=== PATIENT | female | born 1945 | race Caucasian/White ===

== ENCOUNTER 2018-11-30 10:51 | Inpatient (IN) ==
[2018-11-30] MEDS: *HR* OxyCODONE/APAP 5/325 TABLET PO PRN ×2 (13:00→20:28)
[2018-11-30] MEDS ORDERED: MOM Conc 10 ML UD.LIQ PO ONE (14:56)
[2018-11-30] MEDS ORDERED: *HR* Dextrose 50 % in Water (Syg) 50 ML SYRINGE IVP PRN (15:54)
[2018-11-30] MEDS ORDERED: D5% in Water 1,000 ML IVC PRN (15:54)
[2018-11-30] MEDS ORDERED: Dextrose Gel 15 GM/37.5 ML TUBE PO PRN ×2 (15:54)
[2018-11-30] MEDS ORDERED: *HR* Dextrose 50 % in Water (Vial) 50 ML VIAL IVP PRN (16:15)
[2018-11-30] MEDS: Insulin LISPRO 300 UNITS/3 ML VIAL SQ SCH (17:03)
--- NOTE | 2018-11-30 17:37 | Internal Med History&Physical ---
Date of Encounter: 11/30/18 Time of Encounter: 17:10 Assessment and Plan (1) Status post coronary artery bypass graft Current visit: No Status: Acute Continue aspirin and Lopressor. PT and OT evaluations will be done. (2) Anemia Current visit: Yes Status: Acute Anemia testing will be done in a.m. Qualifiers: Anemia type: unspecified type Qualified Code(s): D64.9 - Anemia, unspecified (3) Diabetes mellitus Current visit: No Status: Chronic Hemoglobin A1c was 7.2% on 11/20/2018. Continue Victoza. She will be given Levemir and Accu-Cheks with SSI. Qualifiers: Diabetes mellitus type: type 2 Diabetes mellitus exterminator insulin use: with long-term use Diabetes mellitus complication status: with neurologic complications Diabetes mellitus complication detail: with polyneuropathy Qualified Code(s): E11.42 - Type 2 diabetes mellitus with diabetic polyneuropathy; Z79.4 - intermediate designer (current) use of insulin (4) Hypertension Current visit: No Status: Chronic Continue lisinopril and Lopressor. Qualifiers: Hypertension type: essential hypertension Qualified Code(s): I10 - Essential (primary) hypertension (5) Hyperlipemia Current visit: No Status: Acute Continue atorvastatin. Qualifiers: Hyperlipidemia type: other hyperlipidemia Qualified Code(s): E78.49 - Other hyperlipidemia; E78.4 - Other hyperlipidemia (6) Asthma Current visit: No Status: Chronic Continue Asmanex and prn albuterol. Qualifiers: Asthma severity: mild Asthma persistence: intermittent Asthma complication type: uncomplicated Qualified Code(s): J45.20 - Mild intermittent asthma, uncomplicated (7) Chronic kidney disease, stage III (moderate) Current visit: No Status: Chronic Monitor renal indices. Internal Medicine - H&P: HPI Chief complaint: ASHD status post CABG Admitted From: Hospital to Hospital Transfer Plans for Post Hospital Care: Home History of present illness: Ms. Tapia is a 73 year old female was admitted to [facility] swing bed after a November 19- November 29 [facility] hospitalization for CABG surgery. Heart catheter 11/19/2018 showed 60% stenosis in distal LMCA, 85% stenosis in proximal LAD, 90% stenosis in proxi mal circumflex, 20% stenosis in distal circumflex, 90% stenosis in the first marginal, 25% stenosis in mid RCA and 10% stenosis in distal RCA. She had PETERSON to LAD and SVG to OMB 2 of circumflex 11/22/2018.. Her postop course was unremarkable and she was admitted for redilatation therapy prior to returning to independent living at home. Cardiovascular history is significant otherwise for hypertension with NV approximately 2008. Echocardiogram 11/20/2018 showed LVEF of 55-60% with mild mitral regurgitation. Interventricular septum and posterior wall thickness measurements were 1.00 and 1.10 cm respectively. The E/A ratio was 0.7. Lack of TR jet precluded estimation of RVSP. She denies DVT or pulmonary embolus. Past Med Surg Social Fam HX - Past Medical History Medical history: asthma, COPD, coronary artery disease, CVA, diabetes, GERD, hyperlipidemia, hypertension, migraine, myocardial infarction, TIA, other Additional medical history: Subdural hematoma Psychiatric history: anxiety, depression - Past Surgical History Surgical History: carotid endarterectomy, cataract, hip replacement, KHUSHBOO/BSO, other Additional surgical history: Right hip replacement-2014 (Gianni)-now numb in right foot except the Big toe - Social History Smoking Status: Current every day smoker Smokeless Tobacco Status: No Alcohol use: none Drug use: none - Family History Mother Living Status: Hx Family Cardiac Disorders: (States none known until ) Hx Family Endocrine Disorder: Yes (DM) Brother Living Status: Still Living Hx Family Cardiac Disorders: Yes (Hypertension in one of 3 brothers) Sister Living Status: Still Living Hx Family Autoimmune Disorders: Yes (Sarcoidosis) Internal Medicine - H&P: Meds Rosuvastatin Calcium [Crestor] 5 mg PO HS 03/11/15 [History] Calcium Carbonate/Vitamin D3 [Calcium 500 + Vit D Caplet] 1 tab PO BID 09/30/16 [History] Dexlansoprazole [Dexilant] 60 mg PO HS 09/30/16 [History] Fluticasone Propionate [Flovent Diskus] 1 puff IH BID 09/30/16 [History] Multivit-Min/Iron/Folic/Lutein [Centrum Silver Women Tablet] 1 tab PO DAILY 09/30/16 [History] Sertraline [Zoloft] 100 mg PO DAILY 12/01/17 [History] Albuterol Sulfate [Ventolin Hfa] 2 puff IH Q6H PRN 11/21/18 [History] Insulin ASPART [Novolog Flexpen] 0 - 25 unit SQ TIDAC 11/21/18 [History] Insulin Glargine,Hum.rec.anlog [Lantus Solostar] 0 - 100 unit SQ HS 11/21/18 [History] Liraglutide [Victoza 3-Jose] 1.8 mg SQ DAILY 11/21/18 [History] Lisinopril 2.5 mg PO QAM 11/21/18 [History] Aspirin 81 mg PO DAILY tab.chew 11/29/18 [Rx] Metoprolol [Lopressor] 50 mg PO BID #60 tablet 11/29/18 [Rx] Nortriptyline [Pamelor] 100 mg PO HS capsule 11/29/18 [Rx] OxyCODONE/APAP 5/325 [Percocet 5/325 MG] 1 each PO Q6H PRN 7 Days #10 tablet 11/29/18 [Rx] diazePAM [Valium] 5 mg PO HS PRN 7 Days #10 tablet 11/29/18 [Rx] Allergy/AdvReac Type Severity Reaction Status Date / Time hydromorphone [From Dilaudid] Allergy See Verified 11/21/18 11:47 Comments mannitol [From Reclast] AdvReac See Verified 11/21/18 11:47 Comments zoledronic acid AdvReac See Verified 11/21/18 11:47 [From Reclast] Comments All Systems PM: A 10-system review of systems was performed and is negative for pertinent findings except as documented above in the HPI. Review of systems: Gen.: Her weight has increased from 207 pounds in September 2014 to present weight of 220 pounds. Cardiovascular: As per history of present illness Respiratory: She smoked from age [age] up to 3 packs per day. She reports PFTs many years ago but does not recall being diagnosed with COPD. She has a diagnosis of asthma. She does not use home oxygen and does not have known sleep apnea. GI: She has GERD. She had spontaneous bowel perforation approximately 2004 with surgical repair. She has had colon polyps resected on colonoscopy 2013. She has had hemorrhoid surgery. She denies disorders of her liver gallbladder or exocrine pancreas otherwise. : She denies hematuria dysuria or kidney stones Neurologic: She had a subdural hematoma following a fall in the hospital in 2014. She was treated nonsurgically. She denies large distribution strokes or seizures. She had left carotid endarterectomy approximately 2008. She has had TIAs in the past prior to the left CEA. Endocrine: She was diagnosed with DM 2 approximately 1993. She has hyperlipidemia but no known thyroid disease Hematology/oncology: No history of blood disorders or cancers. She has had anemia documented on several labs over the past few years. She has been using ferrous sulfate for iron deficiency. Psychiatric: She has depression but denies anxiety other mental health diagnoses. [place] skeletal: She had right total hip replacement September 2014. She has osteoporosis, history of gout, and rheumatoid arthritis. - Constitutional Vitals: Temp Pulse Resp BP Pulse Ox 97.5 F L 83 20 108/50 93 11/30/18 11:53 11/30/18 11:53 11/30/18 11:53 11/30/18 11:53 11/30/18 11:53 Exam: Gen.: She is a well-developed well-nourished female resting comfortably in bed who appears in no acute distress HEENT: Head is atraumatic and normocephalic. Eyes: EOMI. There is no scleral icterus. Mouth: Mucosa is moist. Neck: Supple and nontender. There is no thyromegaly or adenopathy noted. She has a well-healed left carotid endarterectomy scar. Heart: Regular without murmurs gallops or ectopics Lungs: No wheezes or crackles are heard. Abdomen: Soft and nontender. No masses or guarding are noted. Extremities: There is no cyanosis edema or clubbing noted. Dorsalis pedis and posterior tibial pulses are trace to 1+ palpable bilaterally. Neurologic: Mental status: She is talkative and a good historian. Cranial nerves: Smile is symmetric. Forehead wrinkles bilaterally. Tongue protrudes midline. EOMI. Motor: There is no pronator drift. Cerebellar: Finger to nose is intact bilaterally. Skin: Warm and dry
[2018-11-30] MEDS: Insulin DETEMIR 100 UNIT/ML X5UNITS SQ SCH (20:28)
[2018-11-30] MEDS: diazePAM 5 MG TABLET PO PRN (20:29)
[2018-12-01] MEDS: *HR* OxyCODONE/APAP 5/325 TABLET PO PRN ×4 (02:24→21:18)
[2018-12-01 06:29] LABS: Thyroid Stimulating Hormone 4.479 mcIU/mL (0.340-5.600)
[2018-12-01] MEDS: Multivit/Ca/Min/Fe/FA 1 TAB TABLET PO SCH (07:54)
[2018-12-01] MEDS: Aspirin 81 MG TAB.CHEW PO SCH (07:55)
[2018-12-01] MEDS: Insulin DETEMIR 100 UNIT/ML X5UNITS SQ SCH ×2 (07:55→21:09)
[2018-12-01] MEDS: Cholecalciferol (D-3) 1,000 UNIT (25MCG) TABLET PO SCH (07:55)
[2018-12-01] MEDS: Insulin LISPRO 300 UNITS/3 ML VIAL SQ SCH ×3 (07:56→16:39)
[2018-12-01] MEDS: VICTOZA SQ SCH (07:59)
[2018-12-01 09:14] LABS: Folate > 22.3 ng/mL (3.0-16.0); Vitamin B12 352 pg/mL (250-1100)
--- NOTE | 2018-12-01 17:32 | Internal Med Progress Note ---
Date of Encounter: 12/01/18 Time of Encounter: 17:20 - Assessment and plan (1) Status post coronary artery bypass graft Current Visit: No Status: Acute Assessment and plan: December 01. Continue aspirin and Lopressor with PT/OT intervention. (2) Anemia Current Visit: Yes Status: Acute Assessment and plan: December 01. Anemia testing showed iron 36, transferrin saturation 12%, transferrin 216, ferritin 98, B12 352, and folate> 2.3 . Start ferrous sulfate with ascorbic acid in a.m. Qualifiers: Anemia type: unspecified type Qualified Code(s): D64.9 - Anemia, unspecified (3) Diabetes mellitus Current Visit: No Status: Chronic Assessment and plan: December 01. Hemoglobin A1c was 7.2% on 11/20/2018. Blood sugars are inadequately controlled at present. Levemir dose will be increased to 30 units twice a day. Continue Victoza and Accu-Cheks with SSI. Qualifiers: Diabetes mellitus type: type 2 Diabetes mellitus buttermaker helper insulin use: with buttermaker helper use Diabetes mellitus complication status: with neurologic complications Diabetes mellitus complication detail: with polyneuropathy Qualified Code(s): E11.42 - Type 2 diabetes mellitus with diabetic polyneuropathy; Z79.4 - terminal clerk (current) use of insulin (4) Hypertension Current Visit: No Status: Chronic Assessment and plan: December 01. Continue lisinopril and Lopressor Qualifiers: Hypertension type: essential hypertension Qualified Code(s): I10 - Essential (primary) hypertension (5) Hyperlipemia Current Visit: No Status: Acute Assessment and plan: December 01. Continue atorvastatin Qualifiers: Hyperlipidemia type: other hyperlipidemia Qualified Code(s): E78.49 - Other hyperlipidemia; E78.4 - Other hyperlipidemia (6) Asthma Current Visit: No Status: Chronic Assessment and plan: December 01. Continue Asmanex and prn albuterol. Qualifiers: Asthma severity: mild Asthma persistence: intermittent Asthma complication type: uncomplicated Qualified Code(s): J45.20 - Mild intermittent asthma, uncomplicated (7) Chronic kidney disease, stage III (moderate) Current Visit: No Status: Chronic Assessment and plan: December 01. Monitor renal indices. - Subjective Interval history: December 01. She has no new complaints. - Constitutional Vitals: Temp Pulse Resp BP Pulse Ox 97.8 F 83 16 139/73 96 12/01/18 06:36 12/01/18 06:36 12/01/18 10:02 12/01/18 06:36 12/01/18 10:02 Exam: She is resting comfortably on the side of bed and appears in no acute distress. Lungs are clear without wheezes or crackles or egophony. Her affect is cheerful. I reviewed her medications and lab results. Consult Discharge Plan - Plan Referrals: Anna Dejesus, WHEEL ASSEMBLER [Primary Care Provider] - 1 week
[2018-12-01] MEDS: diazePAM 5 MG TABLET PO PRN (21:18)
[2018-12-02] MEDS: Ascorbic Acid 500 MG TABLET PO SCH (06:42)
[2018-12-02] MEDS: Multivit/Ca/Min/Fe/FA 1 TAB TABLET PO SCH (08:20)
[2018-12-02] MEDS: Aspirin 81 MG TAB.CHEW PO SCH (08:20)
[2018-12-02] MEDS: Cholecalciferol (D-3) 1,000 UNIT (25MCG) TABLET PO SCH (08:20)
[2018-12-02] MEDS: Insulin LISPRO 300 UNITS/3 ML VIAL SQ SCH ×3 (08:20→16:37)
[2018-12-02] MEDS: VICTOZA SQ SCH (08:21)
[2018-12-02] MEDS: *HR* OxyCODONE/APAP 5/325 TABLET PO PRN ×3 (08:22→20:49)
[2018-12-02] MEDS: Insulin DETEMIR 100 UNIT/ML X5UNITS SQ SCH ×2 (10:00→20:51)
--- NOTE | 2018-12-02 12:03 | Internal Med Progress Note ---
Date of Encounter: 12/02/18 Time of Encounter: 11:55 - Assessment and plan (1) Status post coronary artery bypass graft Current Visit: No Status: Acute Assessment and plan: December 01. Continue aspirin and Lopressor with PT/OT intervention. (2) Anemia Current Visit: Yes Status: Acute Assessment and plan: December 01. Anemia testing showed iron 36, transferrin saturation 12%, transferrin 216, ferritin 98, B12 352, and folate> 2.3 . Start ferrous sulfate with ascorbic acid in a.m. Qualifiers: Anemia type: unspecified type Qualified Code(s): D64.9 - Anemia, unspecified (3) Diabetes mellitus Current Visit: No Status: Chronic Assessment and plan: December 01. Hemoglobin A1c was 7.2% on 11/20/2018. Blood sugars are inadequately controlled at present. Levemir dose will be increased to 30 units twice a day. Continue Victoza and Accu-Cheks with SSI. December 02. Blood sugar slightly improved. Increase Levemir to 35 units twice a day. Qualifiers: Diabetes mellitus type: type 2 Diabetes mellitus mcc insulin use: with mcc use Diabetes mellitus complication status: with neurologic comp lications Diabetes mellitus complication detail: with polyneuropathy Qualified Code(s): E11.42 - Type 2 diabetes mellitus with diabetic polyneurop athy; Z79.4 - terminal computer operator (current) use of insulin (4) Hypertension Current Visit: No Status: Chronic Assessment and plan: December 01. Continue lisinopril and Lopressor Qualifiers: Hypertension type: essential hypertension Qualified Code(s): I10 - Es sential (primary) hypertension (5) Hyperlipemia Current Visit: No Status: Acute Assessment and plan: December 01. Continue atorvastatin Qualifiers: Hyperlipidemia type: other hyperlipidemia Qualified Code(s): E78.49 - Other hyperlipidemia; E78.4 - Other hyperlipidemia (6) Asthma Current Visit: No Status: Chronic Assessment and plan: December 01. Continue Asmanex and prn albuterol. Qualifiers: Asthma severity: mild Asthma persistence: intermittent Asthma complication type: uncomplicated Qualified Code(s): J45.20 - Mild intermittent asthma, uncomplicated (7) Chronic kidney disease, stage III (moderate) Current Visit: No Status: Chronic Assessment and plan: December 01. Monitor renal indices. - Subjective Interval history: December 01. She has no new complaints. December 02. She has no new complaints. She states her soreness is gradually decreasing. - Constitutional Vitals: Temp Pulse Resp BP Pulse Ox 97.6 F 83 18 137/74 94 12/02/18 06:40 12/02/18 06:40 12/02/18 10:09 12/02/18 06:40 12/02/18 10:09 Exam: She is resting comfortably in bed and appears in no acute distress. Her affect is cheerful. There is no significant erythema surrounding her right leg vein graft harvest site. Ecchymoses is undergoing evolutionary healing changes. I reviewed her medications and lab results. Consult Discharge Plan - Plan Referrals: Anna Dejesus, TIE MAN [Primary Care Provider] - 1 week
[2018-12-02] MEDS: diazePAM 5 MG TABLET PO PRN (20:50)
[2018-12-03 06:22] LABS: Basophils # 0.1 K/mcL (0.0-0.2); Basophils % 0.8 %; Eosinophils # 0.4 K/mcL (0.0-0.6); Eosinophils % 3.9 %; Hematocrit 28.3 % (35.3-44.9); Hemoglobin 8.9 g/dL (11.5-15.4); Immature Granulocytes % 0.5 % (0-4); Lymphocytes # 2.9 K/mcL (0.6-4.6); Lymphocytes % 28.6 %; Mean Corpuscular HGB Conc 31.4 g/dL (31.6-35.5); Mean Corpuscular Hemoglobin 28.2 pg (28.0-33.3); Mean Corpuscular Volume 89.6 fL (83.0-100.0); Mean Platelet Volume 10.8 fL (9.4-12.4); Monocytes # 0.9 K/mcL (0.0-1.3); Monocytes % 9.2 %; Neutrophils # 5.7 K/mcL (1.6-8.9); Platelet Count 205 K/mcL (140-400); Red Blood Count 3.16 M/mcL (3.82-4.97); Red Cell Distribution Width 15.9 % (11.5-14.5)
[2018-12-03] MEDS: Ascorbic Acid 500 MG TABLET PO SCH (06:43)
[2018-12-03 08:03] LABS: Alanine Aminotransferase 10 Units/L (7-52); Albumin 3.3 g/dL (3.5-5.7); Albumin/Globulin Ratio 0.9 (1.1-2.2); Alkaline Phosphatase 70 Units/L (34-104); Aspartate Amino Transferase 15 Units/L (13-39); BUN/Creatinine Ratio 17 (6-26); Bilirubin,Total 0.4 mg/dL (0.3-1.0); Blood Urea Nitrogen 14 mg/dL (8-23); Carbon Dioxide 30 mEq/L (23-29); Chloride 101 mEq/L (98-107); Globulin 3.8 g/dL (2.4-3.5); Glucose 247 mg/dL (70-105); Osmolality,Calculated 297 (280-300); Potassium 4.2 mEq/L (3.5-5.1); Sodium 139 mEq/L (136-145); Total Protein 7.1 g/dL (6.4-8.9); eGFR For African Americans > 60 (> 60); eGFR For Non-African Americans > 60 (> 60)
[2018-12-03] MEDS: Multivit/Ca/Min/Fe/FA 1 TAB TABLET PO SCH (08:22)
[2018-12-03] MEDS: Cholecalciferol (D-3) 1,000 UNIT (25MCG) TABLET PO SCH (08:22)
[2018-12-03] MEDS: Aspirin 81 MG TAB.CHEW PO SCH (08:22)
[2018-12-03] MEDS: VICTOZA SQ SCH (08:26)
[2018-12-03] MEDS: Insulin LISPRO 300 UNITS/3 ML VIAL SQ SCH ×3 (08:31→16:20)
[2018-12-03] MEDS: Insulin DETEMIR 100 UNIT/ML X5UNITS SQ SCH ×2 (09:29→21:37)
[2018-12-03] MEDS: *HR* OxyCODONE/APAP 5/325 TABLET PO PRN ×3 (09:32→21:37)
--- NOTE | 2018-12-03 10:41 | Internal Med Progress Note ---
Date of Encounter: 12/03/18 Time of Encounter: 10:35 - Assessment and plan (1) Status post coronary artery bypass graft Current Visit: No Status: Acute Assessment and plan: December 01. Continue aspirin and Lopressor with PT/OT intervention. (2) Anemia Current Visit: Yes Status: Acute Assessment and plan: December 01. Anemia testing showed iron 36, transferrin saturation 12%, transferrin 216, ferritin 98, B12 352, and folate> 2.3 . Start ferrous sulfate with ascorbic acid in a.m. December 03. Hemoglobin has decreased slightly to 8.9. Continue to monitor. Qualifiers: Anemia type: unspecified type Qualified Code(s): D64.9 - Anemia, unspecified (3) Diabetes mellitus Current Visit: No Status: Chronic Assessment and plan: December 01. Hemoglobin A1c was 7.2% on 11/20/2018. Blood sugars are inadequately controlled at present. Levemir dose will be increased to 30 units twice a day. Continue Victoza and Accu-Cheks with SSI. December 02. Blood sugar slightly improved. Increase Levemir to 35 units twice a day. Qualifiers: Diabetes mellitus type: type 2 Diabetes mellitus artists' model insulin use: with usp use Diabetes mellitus complication status: with neurologic complications Diabetes mellitus complication detail: with polyneuropathy Qualified Code(s): E11.42 - Type 2 diabetes mellitus with diabetic polyneuropathy; Z79.4 - intermediate (current) use of insulin (4) Hypertension Current Visit: No Status: Chronic Assessment and plan: December 01. Continue lisinopril and Lopressor Qualifiers: Hypertension type: essential hypertension Qualified Code(s): I10 - Essential (primary) hypertension (5) Hyperlipemia Current Visit: No Status: Acute Assessment and plan: December 01. Continue atorvastatin Qualifiers: Hyperlipidemia type: other hyperlipidemia Qualified Code(s): E78.49 - Other hyperlipidemia; E78.4 - Other hyperlipidemia (6) Asthma Current Visit: No Status: Chronic Assessment and plan: December 01. Continue Asmanex and prn albuterol. Qualifiers: Asthma severity: mild Asthma persistence: intermittent Asthma complication type: uncomplicated Qualified Code(s): J45.20 - Mild intermittent asthma, uncomplicated (7) Chronic kidney disease, stage III (moderate) Current Visit: No Status: Chronic Assessment and plan: December 01. Monitor renal indices. - Subjective Interval history: December 01. She has no new complaints. December 02. She has no new complaints. She states her soreness is gradually decreasing. December 03. She has no new complaints and feels better. - Constitutional Vitals: Temp Pulse Resp BP Pulse Ox 97.8 F 78 18 105/65 95 12/03/18 06:40 12/03/18 06:40 12/03/18 09:20 12/03/18 06:40 12/03/18 09:20 Exam: She is sitting in a chair at bedside resting comfortably. Her affect is bright and cheerful. I reviewed her medications and lab results. Internal Medicine: Result - Labs CBC & Chem 7: 12/03/18 06:06 12/03/18 06:06 Labs: Short CBC 12/03/18 Range/Units 06:06 WBC 10.0 (4.3-11.1) K/mcL Hgb 8.9 L (11.5-15.4) g/dL Hct 28.3 L (35.3-44.9) % Plt Count 205 (140-400) K/mcL Neutrophils # 5.7 (1.6-8.9) K/mcL BMP 12/03/18 06:06 Sodium 139 Potassium 4.2 Chloride 101 Carbon Dioxide 30 H BUN 14 Creatinine 0.82 Glucose 247 H Calcium 9.0 Liver Function 12/03/18 Range/Units 06:06 Total Bilirubin 0.4 (0.3-1.0) mg/dL AST 15 (13-39) Units/L ALT 10 (7-52) Units/L Alkaline Phosphatase 70 (34-104) Units/L Albumin 3.3 L (3.5-5.7) g/dL Consult Discharge Plan - Plan Referrals: Anna Dejesus, SUPER[employer] [Primary Care Provider] - 1 week
[2018-12-03] MEDS: diazePAM 5 MG TABLET PO PRN (21:37)
[2018-12-04] MEDS: *HR* OxyCODONE/APAP 5/325 TABLET PO PRN ×3 (06:37→21:12)
[2018-12-04] MEDS: Ascorbic Acid 500 MG TABLET PO SCH (06:38)
[2018-12-04 09:00] LABS: Basophils # 0.1 K/mcL (0.0-0.2); Basophils % 0.7 %; Eosinophils # 0.4 K/mcL (0.0-0.6); Eosinophils % 3.9 %; Hematocrit 30.4 % (35.3-44.9); Hemoglobin 9.6 g/dL (11.5-15.4); Immature Granulocytes % 0.5 % (0-4); Lymphocytes # 2.3 K/mcL (0.6-4.6); Lymphocytes % 20.5 %; Mean Corpuscular HGB Conc 31.6 g/dL (31.6-35.5); Mean Corpuscular Hemoglobin 28.7 pg (28.0-33.3); Monocytes # 0.8 K/mcL (0.0-1.3); Monocytes % 7.2 %; Neutrophils # 7.5 K/mcL (1.6-8.9); Platelet Count 225 K/mcL (140-400); Red Blood Count 3.34 M/mcL (3.82-4.97); Red Cell Distribution Width 16.4 % (11.5-14.5); Segmented Neutrophils % 67.2 %; White Blood Count 11.1 K/mcL (4.3-11.1)
[2018-12-04] MEDS: Cholecalciferol (D-3) 1,000 UNIT (25MCG) TABLET PO SCH (09:04)
[2018-12-04] MEDS: Multivit/Ca/Min/Fe/FA 1 TAB TABLET PO SCH (09:04)
[2018-12-04] MEDS: Aspirin 81 MG TAB.CHEW PO SCH (09:04)
[2018-12-04] MEDS: VICTOZA SQ SCH (09:05)
[2018-12-04] MEDS: Insulin LISPRO 300 UNITS/3 ML VIAL SQ SCH ×3 (09:08→16:53)
[2018-12-04] MEDS: Insulin DETEMIR 100 UNIT/ML X5UNITS SQ SCH ×2 (09:09→21:13)
[2018-12-04] MEDS: diazePAM 5 MG TABLET PO PRN (21:12)
[2018-12-05] MEDS: Ascorbic Acid 500 MG TABLET PO SCH (05:44)
[2018-12-05] MEDS: *HR* OxyCODONE/APAP 5/325 TABLET PO PRN ×3 (05:45→23:49)
[2018-12-05] MEDS: Multivit/Ca/Min/Fe/FA 1 TAB TABLET PO SCH (08:33)
[2018-12-05] MEDS: Aspirin 81 MG TAB.CHEW PO SCH (08:33)
[2018-12-05] MEDS: Cholecalciferol (D-3) 1,000 UNIT (25MCG) TABLET PO SCH (08:33)
[2018-12-05] MEDS: VICTOZA SQ SCH (08:37)
[2018-12-05] MEDS: Insulin LISPRO 300 UNITS/3 ML VIAL SQ SCH ×3 (08:37→16:46)
[2018-12-05] MEDS: Insulin DETEMIR 100 UNIT/ML X5UNITS SQ SCH ×2 (08:57→20:35)
[2018-12-06] MEDS: Ascorbic Acid 500 MG TABLET PO SCH (06:09)
[2018-12-06] MEDS: *HR* OxyCODONE/APAP 5/325 TABLET PO PRN ×3 (06:09→20:12)
[2018-12-06] MEDS: Insulin DETEMIR 100 UNIT/ML X5UNITS SQ SCH ×2 (10:17→20:12)
[2018-12-06] MEDS: Aspirin 81 MG TAB.CHEW PO SCH (10:18)
[2018-12-06] MEDS: Insulin LISPRO 300 UNITS/3 ML VIAL SQ SCH ×3 (10:18→17:28)
[2018-12-06] MEDS: Multivit/Ca/Min/Fe/FA 1 TAB TABLET PO SCH (10:19)
[2018-12-06] MEDS: Cholecalciferol (D-3) 1,000 UNIT (25MCG) TABLET PO SCH (10:19)
[2018-12-06] MEDS: VICTOZA SQ SCH (12:14)
--- NOTE | 2018-12-06 15:46 | Internal Med Progress Note ---
Date of Encounter: 12/06/18 Time of Encounter: 15:40 - Assessment and plan (1) Status post coronary artery bypass graft Current Visit: No Status: Acute Assessment and plan: December 01. Continue aspirin and Lopressor with PT/OT intervention. (2) Anemia Current Visit: Yes Status: Acute Assessment and plan: December 01. Anemia testing showed iron 36, transferrin saturation 12%, transferrin 216, ferritin 98, B12 352, and folate> 2.3 . Start ferrous sulfate with ascorbic acid in a.m. December 03. Hemoglobin has decreased slightly to 8.9. Continue to monitor. December 06. Hemoglobin increased to 9.6 on 12/04/2018. Recheck in a.m. Qualifiers: Anemia type: unspecified type Qualified Code(s): D64.9 - Anemia, unspecified (3) Diabetes mellitus Current Visit: No Status: Chronic Assessment and plan: December 01. Hemoglobin A1c was 7.2% on 11/20/2018. Blood sugars are inadequately controlled at present. Levemir dose will be increased to 30 units twice a day. Continue Victoza and Accu-Cheks with SSI. December 02. Blood sugar slightly improved. Increase Levemir to 35 units twice a day. Qualifiers: Diabetes mellitus type: type 2 Diabetes mellitus remote computer terminal operator insulin use: with care home use Diabetes mellitus complication status: with neurologic complications Diabetes mellitus complication detail: with polyneuropathy Qualified Code(s): E11.42 - Type 2 diabetes mellitus with diabetic polyneuropathy; Z79.4 - remote computer terminal operator (current) use of insulin (4) Hypertension Current Visit: No Status: Chronic Assessment and plan: December 01. Continue lisinopril and Lopressor Qualifiers: Hypertension type: essential hypertension Qualified Code(s): I10 - Essential (primary) hypertension (5) Hyperlipemia Current Visit: No Status: Acute Assessment and plan: December 01. Continue atorvastatin Qualifiers: Hyperlipidemia type: other hyperlipidemia Qualified Code(s): E78.49 - Other hyperlipidemia; E78.4 - Other hyperlipidemia (6) Asthma Current Visit: No Status: Chronic Assessment and plan: December 01. Continue Asmanex and prn albuterol. Qualifiers: Asthma severity: mild Asthma persistence: intermittent Asthma complication type: uncomplicated Qualified Code(s): J45.20 - Mild intermittent asthma, uncomplicated (7) Chronic kidney disease, stage III (moderate) Current Visit: No Status: Chronic Assessment and plan: December 01. Monitor renal indices. (8) Constipation Current Visit: Yes Status: Acute Assessment and plan: December 06. She will be given magnesium citrate. Qualifiers: Constipation type: unspecified constipation type Qualified Code(s): K59.00 - Constipation, unspecified - Subjective Interval history: December 01. She has no new complaints. December 02. She has no new complaints. She states her soreness is gradually decreasing. December 03. She has no new complaints and feels better. December 06. She has no new complaints. She reports constipation. - Constitutional Vitals: Temp Pulse Resp BP Pulse Ox 98.0 F 73 14 137/76 93 12/06/18 06:30 12/06/18 06:30 12/06/18 10:17 12/06/18 06:30 12/06/18 10:17 Exam: She is resting comfortably in bed and appears in no acute distress. Her affect is bright and cheerful. I reviewed her medications and lab results. Internal Medicine: Result - Labs CBC & Chem 7: 12/04/18 08:45 12/03/18 06:06 Consult Discharge Plan - Plan Referrals: Anna Dejesus, JUNIOR HIGH [employer]CHOOL PRINCIPAL [Primary Care Provider] - 1 week
[2018-12-06] MEDS: diazePAM 5 MG TABLET PO PRN (20:12)
[2018-12-07] MEDS: *HR* OxyCODONE/APAP 5/325 TABLET PO PRN ×3 (05:00→21:26)
[2018-12-07] MEDS: Ascorbic Acid 500 MG TABLET PO SCH (05:03)
[2018-12-07] MEDS: Insulin DETEMIR 100 UNIT/ML X5UNITS SQ SCH ×2 (07:58→21:34)
[2018-12-07] MEDS: Insulin LISPRO 300 UNITS/3 ML VIAL SQ SCH ×3 (07:58→17:05)
[2018-12-07] MEDS: Aspirin 81 MG TAB.CHEW PO SCH (07:59)
[2018-12-07] MEDS: Cholecalciferol (D-3) 1,000 UNIT (25MCG) TABLET PO SCH (08:00)
[2018-12-07] MEDS: VICTOZA SQ SCH (08:00)
[2018-12-07] MEDS: Multivit/Ca/Min/Fe/FA 1 TAB TABLET PO SCH (08:00)
[2018-12-07 08:14] LABS: Basophils # 0.1 K/mcL (0.0-0.2); Basophils % 0.5 %; Eosinophils # 0.5 K/mcL (0.0-0.6); Eosinophils % 4.3 %; Hematocrit 32.3 % (35.3-44.9); Hemoglobin 9.9 g/dL (11.5-15.4); Immature Granulocytes % 0.5 % (0-4); Lymphocytes # 2.7 K/mcL (0.6-4.6); Lymphocytes % 23.4 %; Mean Corpuscular HGB Conc 30.7 g/dL (31.6-35.5); Mean Corpuscular Hemoglobin 28.1 pg (28.0-33.3); Mean Corpuscular Volume 91.8 fL (83.0-100.0); Mean Platelet Volume 11.3 fL (9.4-12.4); Monocytes % 8.5 %; Neutrophils # 7.2 K/mcL (1.6-8.9); Platelet Count 294 K/mcL (140-400); Red Blood Count 3.52 M/mcL (3.82-4.97); Red Cell Distribution Width 16.7 % (11.5-14.5); Segmented Neutrophils % 62.8 %; White Blood Count 11.5 K/mcL (4.3-11.1)
[2018-12-07 09:26] LABS: BUN/Creatinine Ratio 16 (6-26); Blood Urea Nitrogen 14 mg/dL (8-23); Calcium 9.1 mg/dL (8.6-10.3); Carbon Dioxide 31 mEq/L (23-29); Chloride 101 mEq/L (98-107); Glucose 178 mg/dL (70-105); Osmolality,Calculated 293 (280-300); Potassium 4.3 mEq/L (3.5-5.1); Sodium 139 mEq/L (136-145); eGFR For African Americans > 60 (> 60); eGFR For Non-African Americans > 60 (> 60)
[2018-12-08] MEDS ORDERED: Mag Hydrox/Al Hydrox/Simeth 30 ML UDC PO PRN (00:26)
[2018-12-08] MEDS: *HR* OxyCODONE/APAP 5/325 TABLET PO PRN ×3 (04:50→23:56)
[2018-12-08] MEDS: Ascorbic Acid 500 MG TABLET PO SCH (06:36)
[2018-12-08] MEDS: Multivit/Ca/Min/Fe/FA 1 TAB TABLET PO SCH (08:51)
[2018-12-08] MEDS: VICTOZA SQ SCH (08:52)
[2018-12-08] MEDS: Cholecalciferol (D-3) 1,000 UNIT (25MCG) TABLET PO SCH (08:52)
[2018-12-08] MEDS: Aspirin 81 MG TAB.CHEW PO SCH (08:52)
[2018-12-08] MEDS: Insulin DETEMIR 100 UNIT/ML X5UNITS SQ SCH ×2 (08:57→22:25)
[2018-12-08] MEDS: Insulin LISPRO 300 UNITS/3 ML VIAL SQ SCH ×3 (09:00→16:41)
[2018-12-08] MEDS ORDERED: Albuterol 2.5 MG/3 ML NEBULIZER IH PRN (14:18)
--- NOTE | 2018-12-08 15:25 | Internal Med Progress Note ---
Date of Encounter: 12/08/18 Time of Encounter: 15:15 - Assessment and plan (1) Status post coronary artery bypass graft Current Visit: No Status: Acute Assessment and plan: December 01. Continue aspirin and Lopressor with PT/OT intervention. December 08. Continue present Rx. Add gentamicin cream to stab wounds daily (2) Anemia Current Visit: Yes Status: Acute Assessment and plan: December 01. Anemia testing showed iron 36, transferrin saturation 12%, transferrin 216, ferritin 98, B12 352, and folate> 2.3 . Start ferrous sulfate with ascorbic acid in a.m. December 03. Hemoglobin has decreased slightly to 8.9. Continue to monitor. December 06. Hemoglobin increased to 9.6 on 12/04/2018. Recheck in a.m. December 08. Hemoglobin improved to 9.9. Continue to monitor periodically. Qualifiers: Anemia type: unspecified type Qualified Code(s): D64.9 - Anemia, unspecified (3) Diabetes mellitus Current Visit: No Status: Chronic Assessment and plan: December 01. Hemoglobin A1c was 7.2% on 11/20/2018. Blood sugars are inadequately controlled at present. Levemir dose will be increased to 30 units twice a day. Continue Victoza and Accu-Cheks with SSI. December 02. Blood sugar slightly improved. Increase Levemir to 35 units twice a day. December 08. Blood sugars still slightly above desirable level. Increase Levemir to 40 units twice a day. 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 Continue lisinopril and Lopressor Qualifiers: Hypertension type: essential hypertension Qualified Code(s): I10 - Es sential (primary) hypertension (5) Hyperlipemia Current Visit: No Status: Acute Assessment and plan: December 01. Continue atorvastatin Qualifiers: Hyperlipidemia type: other hyperlipidemia Qualified Code(s): E78.49 - Other hyperlipidemia; E78.4 - Other hyperlipidemia (6) Asthma Current Visit: No Status: Chronic Assessment and plan: December 01. Continue Asmanex and prn albuterol. Qualifiers: Asthma severity: mild Asthma persistence: intermittent Asthma complication type: uncomplicated Qualified Code(s): J45.20 - Mild intermittent asthma, uncomplicated (7) Chronic kidney disease, stage III (moderate) Current Visit: No Status: Chronic Assessment and plan: December 01. Monitor renal indices. (8) Constipation Current Visit: Yes Status: Acute Assessment and plan: December 06. She will be given magnesium citrate. December 08. Repeat magnesium citrate today since no BM has occurred. Qualifiers: Constipation type: unspecified constipation type Qualified Code(s): K59.00 - Constipation, unspecified - Subjective Interval history: December 01. She has no new complaints. December 02. She has no new complaints. She states her soreness is gradually decreasing. December 03. She has no new complaints and feels better. December 06. She has no new complaints. She reports constipation. December 08. She has no new complaints. - Constitutional Vitals: Temp Pulse Resp BP Pulse Ox 98.2 F 83 18 133/67 93 12/08/18 08:27 12/08/18 08:27 12/08/18 14:43 12/08/18 08:27 12/08/18 14:43 Exam: She is resting comfortably on the side of the bed and appears in no acute distress. Her stab wounds from CABG surgery drains show exudate without significant drainage. There is no significant erythema or tenderness to palpation. I reviewed her medications and lab results. Internal Medicine: Result - Labs CBC & Chem 7: 12/07/18 07:47 12/07/18 07:47 Consult Discharge Plan - Plan Referrals: Anna Dejesus, FISH BAIT PROCESSING SUPERVISOR [Primary Care Provider] - 1 week
[2018-12-09] MEDS: Ascorbic Acid 500 MG TABLET PO SCH (05:31)
[2018-12-09] MEDS: *HR* OxyCODONE/APAP 5/325 TABLET PO PRN ×3 (05:31→21:09)
[2018-12-09] MEDS: Insulin LISPRO 300 UNITS/3 ML VIAL SQ SCH ×3 (07:36→16:17)
[2018-12-09] MEDS: Aspirin 81 MG TAB.CHEW PO SCH (08:23)
[2018-12-09] MEDS: Multivit/Ca/Min/Fe/FA 1 TAB TABLET PO SCH (08:23)
[2018-12-09] MEDS: VICTOZA SQ SCH (08:24)
[2018-12-09] MEDS: Cholecalciferol (D-3) 1,000 UNIT (25MCG) TABLET PO SCH (08:24)
[2018-12-09] MEDS: Insulin DETEMIR 100 UNIT/ML X5UNITS SQ SCH ×2 (09:24→21:08)
[2018-12-09] MEDS: traZODone 50 MG TABLET PO PRN (21:09)
[2018-12-10] MEDS: Ascorbic Acid 500 MG TABLET PO SCH (05:41)
[2018-12-10] MEDS: Cholecalciferol (D-3) 1,000 UNIT (25MCG) TABLET PO SCH (08:48)
[2018-12-10] MEDS: *HR* OxyCODONE/APAP 5/325 TABLET PO PRN ×2 (08:49→18:11)
[2018-12-10] MEDS: Aspirin 81 MG TAB.CHEW PO SCH (08:49)
[2018-12-10] MEDS: Multivit/Ca/Min/Fe/FA 1 TAB TABLET PO SCH (08:50)
[2018-12-10] MEDS: VICTOZA SQ SCH (08:56)
[2018-12-10] MEDS: Insulin LISPRO 300 UNITS/3 ML VIAL SQ SCH ×3 (08:56→18:10)
--- NOTE | 2018-12-10 12:04 | Internal Med Progress Note ---
Date of Encounter: 12/10/18 Time of Encounter: 11:55 - Assessment and plan (1) Status post coronary artery bypass graft Current Visit: No Status: Acute Assessment and plan: December 01. Continue aspirin and Lopressor with PT/OT intervention. December 08. Continue present Rx. Add gentamicin cream to stab wounds daily December 10. She has follow-up today with her surgeon. (2) Anemia Current Visit: Yes Status: Acute Assessment and plan: December 01. Anemia testing showed iron 36, transferrin saturation 12%, transferrin 216, ferritin 98, B12 352, and folate> 2.3 . Start ferrous sulfate with ascorbic acid in a.m. December 03. Hemoglobin has decreased slightly to 8.9. Continue to monitor. December 06. Hemoglobin increased to 9.6 on 12/04/2018. Recheck in a.m. December 08. Hemoglobin improved to 9.9. Continue to monitor periodically. December 10. Recheck labs in a.m. Qualifiers: Anemia type: unspecified type Qualified Code(s): D64.9 - Anemia, unspecified (3) Diabetes mellitus Current Visit: No Status: Chronic Assessment and plan: December 01. Hemoglobin A1c was 7.2% on 11/20/2018. Blood sugars are inadequately controlled at present. Levemir dose will be increased to 30 units twice a day. Continue Victoza and Accu-Cheks with SSI. December 02. Blood sugar slightly improved. Increase Levemir to 35 units twice a day. December 08. Blood sugars still slightly above desirable level. Increase Levemir to 40 units twice a day. December 10. Blood sugars show fluctuation. Continue present Rx. Qualifiers: Diabetes mellitus type: type 2 Diabetes mellitus snf insulin use: with ad terminal makeup operator use Diabetes mellitus complication status: with neurologic complications Diabetes mellitus complication detail: with polyneuropathy Qualified Code(s): E11.42 - Type 2 diabetes mellitus with diabetic polyneuropathy; Z79.4 - care home (current) use of insulin (4) Hypertension Current Visit: No Status: Chronic Assessment and plan: December 01. Continue lisinopril and Lopressor Qualifiers: Hypertension type: essential hypertension Qualified Code(s): I10 - Essential (primary) hypertension (5) Hyperlipemia Current Visit: No Status: Acute Assessment and plan: December 01. Continue atorvastatin Qualifiers: Hyperlipidemia type: other hyperlipidemia Qualified Code(s): E78.49 - Other hyperlipidemia; E78.4 - Other hyperlipidemia (6) Asthma Current Visit: No Status: Chronic Assessment and plan: December 01. Continue Asmanex and prn albuterol. Qualifiers: Asthma severity: mild Asthma persistence: intermittent Asthma complication type: uncomplicated Qualified Code(s): J45.20 - Mild intermittent asthma, uncomplicated (7) Chronic kidney disease, stage III (moderate) Current Visit: No Status: Chronic Assessment and plan: December 01. Monitor renal indices. (8) Constipation Current Visit: Yes Status: Acute Assessment and plan: December 06. She will be given magnesium citrate. December 08. Repeat magnesium citrate today since no BM has occurred. December 10. She reported December 08 having a BM. Qualifiers: Constipation type: unspecified constipation type Qualified Code(s): K59.00 - Constipation, unspecified (9) Rib fracture Current Visit: Yes Status: Acute Assessment and plan: December 10. I told her to discuss treatment when she follows with her cardiothoracic surgeon today. Qualifiers: Encounter type: initial encounter Rib fracture type: single rib Fracture type: closed Laterality: left Qualified Code(s): S22.32XA - Fracture of one rib, left side, initial encounter for closed fracture (10) Closed coracoid process fracture Current Visit: Yes Status: Acute Assessment and plan: December 10. She was seen by [facility] who recommended nonoperative approach with sling placement. Qualifiers: Encounter type: initial encounter Fracture alignment: displaced Laterality: left Qualified Code(s): S42.132A - Displaced fracture of coracoid process, left shoulder, initial encounter for closed fracture - Subjective Interval history: December 01. She has no new complaints. December 02. She has no new complaints. She states her soreness is gradually decreasing. December 03. She has no new complaints and feels better. December 06. She has no new complaints. She reports constipation. December 08. She has no new complaints. . She states she was ambulating to the bathroom during the night and fell striking her head and left shoulder area. Head CT showed no acute pathology. Left shoulder CT showed comminuted minimally displaced fracture of the coracoid process tip and mildly displaced fracture of the posterolateral left first rib. There was moderate to large left pleural effusion. - Constitutional Vitals: Temp Pulse Resp BP Pulse Ox 98.5 F 79 16 107/61 92 12/10/18 09:45 12/10/18 09:45 12/10/18 10:11 12/10/18 09:45 12/10/18 10:11 Exam: She is sitting on the side of bed resting comfortably. She does not appear to be in significant pain. Her affect is cheerful. I reviewed her medications, lab results, and x-ray reports. Internal Medicine: Result - Labs CBC & Chem 7: 12/07/18 07:47 12/07/18 07:47 - Impressions Impressions Head CT 12/10/18 02:41 IMPRESSION: No acute intracranial hemorrhage or mass effect. 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 Posterior scalp soft tissue swelling. No acute displaced skull fracture. D/ / Josef Sessions / Josef Sessions Interpreting Provider: Josef Sessions Shoulder CT 12/10/18 02:47 IMPRESSION: Acute traumatic comminuted minimally displaced fracture of the coracoid process tip. Acute traumatic comminuted mildly displaced fracture of posterolateral left 1st rib. Partially imaged moderate to large left pleural effusion with likely some associated compressive atelectasis to partially imaged left lower lobe. Moderate degenerative changes to the AC joint. D/ / 12/10/2018 07:26:58 Farshad Jones MD / marti Interpreting Provider: Farshad Jones MD Consult Discharge Plan - Plan Referrals: Anna Dejesus, PRODUCTION ANALYST [Primary Care Provider] - 1 week
[2018-12-10] MEDS: Insulin DETEMIR 100 UNIT/ML X5UNITS SQ SCH ×2 (13:56→20:11)
[2018-12-10 17:41] LABS: Basophils % 0.4 %; Eosinophils # 0.4 K/mcL (0.0-0.6); Eosinophils % 3.4 %; Hematocrit 33.6 % (35.3-44.9); Hemoglobin 10.2 g/dL (11.5-15.4); Immature Granulocytes % 0.5 % (0-4); Lymphocytes # 2.2 K/mcL (0.6-4.6); Lymphocytes % 20.5 %; Mean Corpuscular HGB Conc 30.4 g/dL (31.6-35.5); Mean Corpuscular Hemoglobin 27.9 pg (28.0-33.3); Mean Corpuscular Volume 92.1 fL (83.0-100.0); Mean Platelet Volume 10.5 fL (9.4-12.4); Monocytes # 0.9 K/mcL (0.0-1.3); Neutrophils # 7.3 K/mcL (1.6-8.9); Platelet Count 297 K/mcL (140-400); Red Blood Count 3.65 M/mcL (3.82-4.97); Red Cell Distribution Width 16.4 % (11.5-14.5); Segmented Neutrophils % 67.2 %; White Blood Count 10.8 K/mcL (4.3-11.1)
[2018-12-10 17:59] LABS: BUN/Creatinine Ratio 15 (6-26); Blood Urea Nitrogen 14 mg/dL (8-23); Carbon Dioxide 33 mEq/L (23-29); Chloride 100 mEq/L (98-107); Glucose 210 mg/dL (70-105); Osmolality,Calculated 293 (280-300); Potassium 4.3 mEq/L (3.5-5.1); Sodium 138 mEq/L (136-145); eGFR For African Americans > 60 (> 60); eGFR For Non-African Americans 59 (> 60)
[2018-12-10] MEDS: traZODone 50 MG TABLET PO PRN (20:08)
[2018-12-11] MEDS: Ascorbic Acid 500 MG TABLET PO SCH (06:27)
[2018-12-11] MEDS: *HR* OxyCODONE/APAP 5/325 TABLET PO PRN ×2 (06:27→16:23)
[2018-12-11] MEDS: Aspirin 81 MG TAB.CHEW PO SCH (09:27)
[2018-12-11] MEDS: Multivit/Ca/Min/Fe/FA 1 TAB TABLET PO SCH (09:27)
[2018-12-11] MEDS: VICTOZA SQ SCH (09:28)
[2018-12-11] MEDS: Insulin DETEMIR 100 UNIT/ML X5UNITS SQ SCH ×2 (09:28→21:46)
[2018-12-11] MEDS: Insulin LISPRO 300 UNITS/3 ML VIAL SQ SCH ×3 (09:29→16:33)
[2018-12-11] MEDS: Cholecalciferol (D-3) 1,000 UNIT (25MCG) TABLET PO SCH (09:32)
[2018-12-11] MEDS ORDERED: Nitroglycerin 0.4 MG TAB.SUBL SL ONE (10:08)
[2018-12-11] MEDS: Nitroglycerin 0.4 MG TAB.SUBL SL PRN ×2 (10:09→10:15)
--- NOTE | 2018-12-11 14:25 | Electrocardiograph Report ---
[place] [id number] Test Date: 2018-12-11 Pat Name: Grace Tapia Department: [id number] Room: [facility] Gender: F Human Resources Operations Coordinator: [id number] : 1945 Requested By: Cortez Stern Order Number: [id number] Reading MD: Igor Tao Measurements Intervals [place] Rate: 78 P: 44 VA: 153 QRS: -65 QRSD: 151 T: 14 QT: 461 QTc: 494 Interpretive Statements SINUS RHYTHM POSSIBLE LEFT ATRIAL ENLARGEMENT RIGHT BUNDLE BRANCH BLOCK INFERIOR MYOCARDIAL INFARCTION, OF INDETERMINATE AGE ANTEROLATERAL MYOCARDIAL INFARCTION, OF INDETERMINATE AGE Electronically Signed On 12-11-2018 14:23:13 EDT by Igor Tao
--- NOTE | 2018-12-11 15:28 | Internal Med Progress Note ---
Date of Encounter: 12/11/18 Time of Encounter: 13:30 - Assessment and plan (1) Status post coronary artery bypass graft Current Visit: No Status: Acute Assessment and plan: December 01. Continue aspirin and Lopressor with PT/OT intervention. December 08. Continue present Rx. Add gentamicin cream to stab wounds daily December 10. She has follow-up today with her surgeon. December 11. The scheduled follow-up visit with her surgeon December 10 was not completed due to transportation not being arranged. The visit has been rescheduled for December 13. I offered yesterday to transfer her to [facility] so she could be seen as an inpatient but she declined transfer. (2) Anemia Current Visit: Yes Status: Acute Assessment and plan: December 01. Anemia testing showed iron 36, transferrin saturation 12%, transferrin 216, ferritin 98, B12 352, and folate> 2.3 . Start ferrous sulfate with ascorbic acid in a.m. December 03. Hemoglobin has decreased slightly to 8.9. Continue to monitor. December 06. Hemoglobin increased to 9.6 on 12/04/2018. Recheck in a.m. December 08. Hemoglobin improved to 9.9. Continue to monitor periodically. December 10. Recheck labs in a.m. December 11. Hemoglobin further improved to 10.2 on labs yesterday. Recheck in a.m. Qualifiers: Anemia type: unspecified type Qualified Code(s): D64.9 - Anemia, unspecified (3) Diabetes mellitus Current Visit: No Status: Chronic Assessment and plan: December 01. Hemoglobin A1c was 7.2% on 11/20/2018. Blood sugars are inadequately controlled at present. Levemir dose will be increased to 30 units twice a day. Continue Victoza and Accu-Cheks with SSI. December 02. Blood sugar slightly improved. Increase Levemir to 35 units twice a day. December 08. Blood sugars still slightly above desirable level. Increase Levemir to 40 units twice a day. December 10. Blood sugars show fluctuation. Continue present Rx. Qualifiers: Diabetes mellitus type: type 2 Diabetes mellitus tank terminal gauger insulin use: with tank terminal gauger use Diabetes mellitus complication status: with neurologic complications Diabetes mellitus complication detail: with polyneuropathy Qualified Code(s): E11.42 - Type 2 diabetes mellitus with diabetic polyneuropathy; Z79.4 - custodial (current) use of insulin (4) Hypertension Current Visit: No Status: Chronic Assessment and plan: December 01. Continue lisinopril and Lopressor Qualifiers: Hypertension type: essential hypertension Qualified Code(s): I10 - Essential (primary) hypertension (5) Hyperlipemia Current Visit: No Status: Acute Assessment and plan: December 01. Continue atorvastatin Qualifiers: Hyperlipidemia type: other hyperlipidemia Qualified Code(s): E78.49 - Other hyperlipidemia; E78.4 - Other hyperlipidemia (6) Asthma Current Visit: No Status: Chronic Assessment and plan: December 01. Continue Asmanex and prn albuterol. Qualifiers: Asthma severity: mild Asthma persistence: intermittent Asthma complication type: uncomplicated Qualified Code(s): J45.20 - Mild intermittent asthma, uncomplicated (7) Chronic kidney disease, stage III (moderate) Current Visit: No Status: Chronic Assessment and plan: December 01. Monitor renal indices. (8) Constipation Current Visit: Yes Status: Acute Assessment and plan: December 06. She will be given magnesium citrate. December 08. Repeat magnesium citrate today since no BM has occurred. December 10. She reported December 08 having a BM. Qualifiers: Constipation type: unspecified constipation type Qualified Code(s): K59.00 - Constipation, unspecified (9) Rib fracture Current Visit: Yes Status: Acute Assessment and plan: December 10. I told her to discuss treatment when she follows with her car diothoracic surgeon today. December 11. Confirmed on chest CT today. Her thoracic surgeon can further address at office visit on December 13. Qualifiers: Encounter type: initial encounter Rib fracture type: single rib Fracture type: closed Laterality: left Qualified Code(s): S22.32XA - Fracture of one rib, left side, initial encounter for closed fracture (10) Closed coracoid process fracture Current Visit: Yes Status: Acute Assessment and plan: December 10. She was seen by [facility] who recommended nonoperative approach with sling placement. December 11. She was not wearing arm sling when I visited today. She has been instructed by nursing staff to wear it. Qualifiers: Encounter type: initial encounter Fracture alignment: displaced Laterality: left Qualified Code(s): S42.132A - Displaced fracture of coracoid process, left shoulder, initial encounter for closed fracture - Subjective Interval history: December 01. She has no new complaints. December 02. She has no new complaints. She states her soreness is gradually decreasing. December 03. She has no new complaints and feels better. December 06. She has no new complaints. She reports constipation. December 08. She has no new complaints. December 10. She states she was ambulating to the bathroom during the night and fell striking her head and left shoulder area. Head CT showed no acute pathology. Left shoulder CT showed comminuted minimally displaced fracture of the coracoid process tip and mildly displaced fracture of the posterolateral left first rib. There was moderate to large left pleural effusion. December 11. She has no new complaints. She denies pain or dyspnea at rest. - Constitutional Vitals: Temp Pulse Resp BP Pulse Ox 97.8 F 77 22 97/61 95 12/11/18 10:05 12/11/18 10:20 12/11/18 10:05 12/11/18 10:20 12/11/18 10:36 Exam: She is sitting in a chair at bedside resting comfortably. Her affect is bright and cheerful. Her stab wounds showed no evidence of secondary infection and quantity of exudate is less than on previous examination. Heart is regular without murmurs gallops or ectopics. She is in no respiratory distress. I reviewed her medications and lab results. Internal Medicine: Result - Labs CBC & Chem 7: 12/10/18 17:30 12/10/18 17:30 Labs: Short CBC 12/10/18 Range/Units 17:30 WBC 10.8 (4.3-11.1) K/mcL Hgb 10.2 L (11.5-15.4) g/dL Hct 33.6 L (35.3-44.9) % Plt Count 297 (140-400) K/mcL Neutrophils # 7.3 (1.6-8.9) K/mcL BMP 12/10/18 17:30 Sodium 138 Potassium 4.3 Chloride 100 Carbon Dioxide 33 H BUN 14 Creatinine 0.94 Glucose 210 H Calcium 9.0 - Impressions Impressions Shoulder CT 12/10/18 02:47 IMPRESSION: Acute traumatic comminuted minimally displaced fracture of the coracoid process tip. Acute traumatic comminuted mildly displaced fracture of posterolateral left 1st rib. Partially imaged moderate to large left pleural effusion with likely some associated compressive atelectasis to partially imaged left lower lobe. Moderate degenerative changes to the AC joint. D/ / 12/10/2018 07:26:58 Farshad Jones MD / [email or web address] Interpreting Provider: Farshad Jones MD Chest CT 12/11/18 13:49 IMPRESSION: 1. Moderate left and small right pleural effusions with right more than left lower lobe compressive atelectasis. 2. Left 1st rib fracture. Status post median sternotomy. Small amount of retrosternal fluid/edema is postsurgical. 3. Hepatic cirrhosis and splenomegaly compatible with portal hypertension. D/ / 12/11/2018 14:39:59 Yoseph Goldstein MD / aileen Interpreting Provider: Yoseph Goldstein MD Consult Discharge Plan - Plan Referrals: Anna Dejesus, HEALTH INFORMATICS ADVISOR [Primary Care Provider] - 1 week
[2018-12-11] MEDS: Gentamicin Oint 15 GM TUBE TP SCH (15:56)
[2018-12-12] MEDS: Ascorbic Acid 500 MG TABLET PO SCH (05:33)
[2018-12-12] MEDS: *HR* OxyCODONE/APAP 5/325 TABLET PO PRN ×2 (05:33→17:55)
[2018-12-12 05:36] LABS: Basophils % 0.5 %; Eosinophils # 0.3 K/mcL (0.0-0.6); Eosinophils % 4.2 %; Hematocrit 33.5 % (35.3-44.9); Hemoglobin 10.4 g/dL (11.5-15.4); Immature Granulocytes % 0.3 % (0-4); Lymphocytes # 1.9 K/mcL (0.6-4.6); Lymphocytes % 25.1 %; Mean Corpuscular Hemoglobin 28.4 pg (28.0-33.3); Mean Corpuscular Volume 91.5 fL (83.0-100.0); Monocytes # 0.6 K/mcL (0.0-1.3); Monocytes % 8.2 %; Neutrophils # 4.6 K/mcL (1.6-8.9); Platelet Count 243 K/mcL (140-400); Red Blood Count 3.66 M/mcL (3.82-4.97); Red Cell Distribution Width 16.1 % (11.5-14.5); Segmented Neutrophils % 61.7 %; White Blood Count 7.4 K/mcL (4.3-11.1)
[2018-12-12 05:57] LABS: Alanine Aminotransferase 14 Units/L (7-52); Albumin 3.3 g/dL (3.5-5.7); Albumin/Globulin Ratio 0.8 (1.1-2.2); Alkaline Phosphatase 113 Units/L (34-104); Aspartate Amino Transferase 19 Units/L (13-39); BUN/Creatinine Ratio 17 (6-26); Bilirubin,Total 0.4 mg/dL (0.3-1.0); Blood Urea Nitrogen 14 mg/dL (8-23); Calcium 8.9 mg/dL (8.6-10.3); Carbon Dioxide 32 mEq/L (23-29); Chloride 101 mEq/L (98-107); Globulin 3.9 g/dL (2.4-3.5); Glucose 237 mg/dL (70-105); Osmolality,Calculated 296 (280-300); Potassium 3.9 mEq/L (3.5-5.1); Sodium 139 mEq/L (136-145); Total Protein 7.2 g/dL (6.4-8.9); eGFR For African Americans > 60 (> 60); eGFR For Non-African Americans > 60 (> 60)
[2018-12-12] MEDS: Aspirin 81 MG TAB.CHEW PO SCH (08:46)
[2018-12-12] MEDS: Multivit/Ca/Min/Fe/FA 1 TAB TABLET PO SCH (08:46)
[2018-12-12] MEDS: Cholecalciferol (D-3) 1,000 UNIT (25MCG) TABLET PO SCH (08:46)
[2018-12-12] MEDS: Gentamicin Oint 15 GM TUBE TP SCH (08:47)
[2018-12-12] MEDS: VICTOZA SQ SCH (08:47)
[2018-12-12] MEDS: Insulin DETEMIR 100 UNIT/ML X5UNITS SQ SCH ×2 (08:47→21:27)
[2018-12-12] MEDS: Insulin LISPRO 300 UNITS/3 ML VIAL SQ SCH ×3 (08:47→17:52)
[2018-12-12] MEDS ORDERED: Gentamicin Oint 15 GM TUBE TP SCH (09:00)
--- NOTE | 2018-12-12 12:19 | Internal Med Progress Note ---
Date of Encounter: 12/12/18 Time of Encounter: 12:10 - Assessment and plan (1) Status post coronary artery bypass graft Current Visit: No Status: Acute Assessment and plan: December 01. Continue aspirin and Lopressor with PT/OT intervention. December 08. Continue present Rx. Add gentamicin cream to stab wounds daily December 10. She has follow-up today with her surgeon. December 11. The scheduled follow-up visit with her surgeon December 10 was not completed due to transportation not being arranged. The visit has been rescheduled for December 13. I offered yesterday to transfer her to [facility] so she could be seen as an inpatient but she declined transfer. (2) Anemia Current Visit: Yes Status: Acute Assessment and plan: December 01. Anemia testing showed iron 36, transferrin saturation 12%, transferrin 216, ferritin 98, B12 352, and folate> 2.3 . Start ferrous sulfate with ascorbic acid in a.m. December 03. Hemoglobin has decreased slightly to 8.9. Continue to monitor. December 06. Hemoglobin increased to 9.6 on 12/04/2018. Recheck in a.m. December 08. Hemoglobin improved to 9.9. Continue to monitor periodically. December 10. Recheck labs in a.m. December 11. Hemoglobin further improved to 10.2 on labs yesterday. Recheck in a.m. December 12. Hemoglobin further improved to 10.4. Qualifiers: Anemia type: unspecified type Qualified Code(s): D64.9 - Anemia, unspecified (3) Diabetes mellitus Current Visit: No Status: Chronic Assessment and plan: December 01. Hemoglobin A1c was 7.2% on 11/20/2018. Blood sugars are inadequately controlled at present. Levemir dose will be increased to 30 units twice a day. Continue Victoza and Accu-Cheks with SSI. December 02. Blood sugar slightly improved. Increase Levemir to 35 units twice a day. December 08. Blood sugars still slightly above desirable level. Increase Levemir to 40 units twice a day. December 10. Blood sugars show fluctuation. Continue present Rx. December 12. Blood sugars slightly above desirable range. Increase Levemir to 42 units twice a day Qualifiers: Diabetes mellitus type: type 2 Diabetes mellitus buttermilk drier operator insulin use: with correction use Diabetes mellitus complication status: with neurologic complications Diabetes mellitus complication detail: with polyneuropathy Qualified Code(s): E11.42 - Type 2 diabetes mellitus with diabetic polyneuropathy; Z79.4 - prison (current) use of insulin (4) Hypertension Current Visit: No Status: Chronic Assessment and plan: December 01. Continue lisinopril and Lopressor Qualifiers: Hypertension type: essential hypertension Qualified Code(s): I10 - Essential (primary) hypertension (5) Hyperlipemia Current Visit: No Status: Acute Assessment and plan: December 01. Continue atorvastatin Qualifiers: Hyperlipidemia type: other hyperlipidemia Qualified Code(s): E78.49 - Other hyperlipidemia; E78.4 - Other hyperlipidemia (6) Asthma Current Visit: No Status: Chronic Assessment and plan: December 01. Continue Asmanex and prn albuterol. Qualifiers: Asthma severity: mild Asthma persistence: intermittent Asthma complication type: uncomplicated Qualified Code(s): J45.20 - Mild intermittent asthma, uncomplicated (7) Chronic kidney disease, stage III (moderate) Current Visit: No Status: Chronic Assessment and plan: December 01. Monitor renal indices. (8) Constipation Current Visit: Yes Status: Acute Assessment and plan: December 06. She will be given magnesium citrate. December 08. Repeat magnesium citrate today since no BM has occurred. December 10. She reported December 08 having a BM. Qualifiers: Constipation type: unspecified constipation type Qualified Code(s): K59.00 - Constipation, unspecified (9) Rib fracture Current Visit: Yes Status: Acute Assessment and plan: December 10. I told her to discuss treatment when she follows with her cardiothoracic surgeon today. December 11. Confirmed on chest CT today. Her thoracic surgeon can further address at office visit on December 13. December 12. Asymptomatic. Cardiothoracic surgery can further address tomorrow. Qualifiers: Encounter type: initial encounter Rib fracture type: single rib Fracture type: closed Laterality: left Qualified Code(s): S22.32XA - Fracture of one rib, left side, initial encounter for closed fracture (10) Closed coracoid process fracture Current Visit: Yes Status: Acute Assessment and plan: December 10. She was seen by [facility] who recommended nonoperative approach with sling placement. December 11. She was not wearing arm sling when I visited today. She has been instructed by nursing staff to wear it. December 12. I encouraged her to put her sling on after eating. Qualifiers: Encounter type: initial encounter Fracture alignment: displaced Laterality: left Qualified Code(s): S42.132A - Displaced fracture of coracoid process, left shoulder, initial encounter for closed fracture - Subjective Interval history: December 01. She has no new complaints. December 02. She has no new complaints. She states her soreness is gradually decreasing. December 03. She has no new complaints and feels better. December 06. She has no new complaints. She reports constipation. December 08. She has no new complaints. December 10. She states she was ambulating to the bathroom during the night and fell striking her head and left shoulder area. Head CT showed no acute pathology. Left shoulder CT showed comminuted minimally displaced fracture of the coracoid process tip and mildly displaced fracture of the posterolateral left first rib. There was moderate to large left pleural effusion. December 11. She has no new complaints. She denies pain or dyspnea at rest. December 12. She has no new complaints. She denies pain in her neck or dyspnea. She states there is mild discomfort in her right parasternal area but it has been there since surgery and is improving. - Constitutional Vitals: Temp Pulse Resp BP Pulse Ox 97.5 F L 81 18 131/64 92 12/12/18 07:52 12/12/18 07:52 12/12/18 09:58 12/12/18 07:52 12/12/18 09:58 Exam: She is resting comfortably on the side of bed eating lunch. She is using her right hand to eat and is not wearing the sling at this time. Her affect is bright and cheerful. I reviewed her medications and lab results. Internal Medicine: Result - Labs CBC & Chem 7: 12/12/18 04:40 12/12/18 04:40 Labs: Short CBC 12/12/18 Range/Units 04:40 WBC 7.4 (4.3-11.1) K/mcL Hgb 10.4 L (11.5-15.4) g/dL Hct 33.5 L (35.3-44.9) % Plt Count 243 (140-400) K/mcL Neutrophils # 4.6 (1.6-8.9) K/mcL BMP 12/12/18 04:40 Sodium 139 Potassium 3.9 Chloride 101 Carbon Dioxide 32 H BUN 14 Creatinine 0.83 Glucose 237 H Calcium 8.9 Liver Function 12/12/18 Range/Units 04:40 Total Bilirubin 0.4 (0.3-1.0) mg/dL AST 19 (13-39) Units/L ALT 14 (7-52) Units/L Alkaline Phosphatase 113 H (34-104) Units/L Albumin 3.3 L (3.5-5.7) g/dL - Impressions Impressions Chest CT 12/11/18 13:49 IMPRESSION: 1. Moderate left and small right pleural effusions with right more than left lower lobe compressive atelectasis. 2. Left 1st rib fracture. Status post median sternotomy. Small amount of retrosternal fluid/edema is postsurgical. 3. Hepatic cirrhosis and splenomegaly compatible with portal hypertension. D/ / 12/11/2018 14:39:59 Yoseph Goldstein MD / aileen Interpreting Provider: Yoseph Goldstein MD Consult Discharge Plan - Plan Referrals: Anna Dejesus, FAMILY SERVICE COUNSELOR [Primary Care Provider] - 1 week
[2018-12-13] MEDS: *HR* OxyCODONE/APAP 5/325 TABLET PO PRN ×3 (01:07→17:34)
[2018-12-13] MEDS: Ascorbic Acid 500 MG TABLET PO SCH (06:43)
[2018-12-13] MEDS: Insulin LISPRO 300 UNITS/3 ML VIAL SQ SCH ×3 (08:02→17:34)
[2018-12-13] MEDS: Multivit/Ca/Min/Fe/FA 1 TAB TABLET PO SCH (08:15)
[2018-12-13] MEDS: Aspirin 81 MG TAB.CHEW PO SCH (08:15)
[2018-12-13] MEDS: Gentamicin Oint 15 GM TUBE TP SCH (08:16)
[2018-12-13] MEDS: Cholecalciferol (D-3) 1,000 UNIT (25MCG) TABLET PO SCH (08:16)
[2018-12-13] MEDS: Insulin DETEMIR 100 UNIT/ML X5UNITS SQ SCH ×2 (09:01→22:24)
[2018-12-13] MEDS: VICTOZA SQ SCH (09:02)
--- NOTE | 2018-12-13 15:01 | Internal Med Progress Note ---
Date of Encounter: 12/13/18 Time of Encounter: 14:50 - Assessment and plan (1) Status post coronary artery bypass graft Current Visit: No Status: Acute Assessment and plan: December 01. Continue aspirin and Lopressor with PT/OT intervention. December 08. Continue present Rx. Add gentamicin cream to stab wounds daily December 10. She has follow-up today with her surgeon. December 11. The scheduled follow-up visit with her surgeon December 10 was not completed due to transportation not being arranged. The visit has been rescheduled for December 13. I offered yesterday to transfer her to [facility] so she could be seen as an inpatient but she declined transfer. December 13. Continue present Rx (2) Anemia Current Visit: Yes Status: Acute Assessment and plan: December 01. Anemia testing showed iron 36, transferrin saturation 12%, transferrin 216, ferritin 98, B12 352, and folate> 2.3 . Start ferrous sulfate with ascorbic acid in a.m. December 03. Hemoglobin has decreased slightly to 8.9. Continue to monitor. December 06. Hemoglobin increased to 9.6 on 12/04/2018. Recheck in a.m. December 08. Hemoglobin improved to 9.9. Continue to monitor periodically. December 10. Recheck labs in a.m. December 11. Hemoglobin further improved to 10.2 on labs yesterday. Recheck in a.m. December 12. Hemoglobin further improved to 10.4. Qualifiers: Anemia type: unspecified type Qualified Code(s): D64.9 - Anemia, unspecified (3) Diabetes mellitus Current Visit: No Status: Chronic Assessment and plan: December 01. Hemoglobin A1c was 7.2% on 11/20/2018. Blood sugars are inadequately controlled at present. Levemir dose will be increased to 30 units twice a day. Continue Victoza and Accu-Cheks with SSI. December 02. Blood sugar slightly improved. Increase Levemir to 35 units twice a day. December 08. Blood sugars still slightly above desirable level. Increase Levemir to 40 units twice a day. December 10. Blood sugars show fluctuation. Continue present Rx. December 12. Blood sugars slightly above desirable range. 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 Continue lisinopril and Lopressor Qualifiers: Hypertension type: essential hypertension Qualified Code(s): I10 - Essential (primary) hypertension (5) Hyperlipemia Current Visit: No Status: Acute Assessment and plan: December 01. Continue atorvastatin Qualifiers: Hyperlipidemia type: other hyperlipidemia Qualified Code(s): E78.49 - Other hyperlipidemia; E78.4 - Other hyperlipidemia (6) Asthma Current Visit: No Status: Chronic Assessment and plan: December 01. Continue Asmanex and prn albuterol. Qualifiers: Asthma severity: mild Asthma persistence: intermittent Asthma complication type: uncomplicated Qualified Code(s): J45.20 - Mild intermittent asthma, uncomplicated (7) Chronic kidney disease, stage III (moderate) Current Visit: No Status: Chronic Assessment and plan: December 01. Monitor renal indices. (8) Constipation Current Visit: Yes Status: Acute Assessment and plan: December 06. She will be given magnesium citrate. December 08. Repeat magnesium citrate today since no BM has occurred. December 10. She reported December 08 having a BM. Qualifiers: Constipation type: unspecified constipation type Qualified Code(s): K59.00 - Constipation, unspecified (9) Rib fracture Current Visit: Yes Status: Acute Assessment and plan: December 10. I told her to discuss treatment when she follows with her cardiothoracic surgeon today. December 11. Confirmed on chest CT today. Her thoracic surgeon can further address at office visit on December 13. December 12. Asymptomatic. Cardiothoracic surgery can further address tomorrow. December 13. Remains asymptomatic. No Rx recommended by cardiothoracic surgery staff. Qualifiers: Encounter type: initial encounter Rib fracture type: single rib Fracture type: closed Laterality: left Qualified Code(s): S22.32XA - Fracture of one rib, left side, initial encounter for closed fracture (10) Closed coracoid process fracture Current Visit: Yes Status: Acute Assessment and plan: December 10. She was seen by [facility] who recommended nonoperative appr oach with sling placement. December 11. She was not wearing arm sling when I visited today. She has been instructed by nursing staff to wear it. December 12. I encouraged her to put her sling on after eating. December 13. She was not wearing her sling. I encouraged her again to wear it as prescribed. Qualifiers: Encounter type: initial encounter Fracture alignment: displaced Laterality: left Qualified Code(s): S42.132A - Displaced fracture of coracoid process, left shoulder, initial encounter for closed fracture - Subjective Interval history: December 01. She has no new complaints. December 02. She has no new complaints. She states her soreness is gradually decreasing. December 03. She has no new complaints and feels better. December 06. She has no new complaints. She reports constipation. December 08. She has no new complaints. December 10. She states she was ambulating to the bathroom during the night and fell striking her head and left shoulder area. Head CT showed no acute pathology. Left shoulder CT showed comminuted minimally displaced fracture of the coracoid process tip and mildly displaced fracture of the posterolateral left first rib. There was moderate to large left pleural effusion. December 11. She has no new complaints. She denies pain or dyspnea at rest. December 12. She has no new complaints. She denies pain in her neck or dyspnea. She states there is mild discomfort in her right parasternal area but it has been there since surgery and is improving. December 13. She has returned from her visit with cardiothoracic surgery staff. I hand wrote a note before she left for the appointment requesting evaluation and recommended Rx for the first rib fracture, left pleural effusion, and midline incision/stab wounds. The patient states she received a "good report" with no further recommendations for intervention. - Constitutional Vitals: Temp Pulse Resp BP Pulse Ox 98.1 F 61 12 110/59 91 12/13/18 09:00 12/13/18 09:00 12/13/18 09:19 12/13/18 09:00 12/13/18 09:19 Exam: She is resting comfortably in bed and appears in no acute distress. Her affect is very cheerful. She is not dyspneic. I reviewed her medications and lab re joshua. Internal Medicine: Result - Labs CBC & Chem 7: 12/12/18 04:40 12/12/18 04:40 Consult Discharge Plan - Plan Referrals: Anna Dejesus, MANAGER STORE [Primary Care Provider] - 1 week
[2018-12-13] MEDS: traZODone 50 MG TABLET PO PRN (22:40)
[2018-12-14] MEDS: Ascorbic Acid 500 MG TABLET PO SCH (05:10)
[2018-12-14] MEDS: *HR* OxyCODONE/APAP 5/325 TABLET PO PRN ×2 (05:10→17:18)
[2018-12-14] MEDS: Insulin LISPRO 300 UNITS/3 ML VIAL SQ SCH ×3 (08:10→17:24)
[2018-12-14] MEDS: VICTOZA SQ SCH (08:42)
[2018-12-14] MEDS: Multivit/Ca/Min/Fe/FA 1 TAB TABLET PO SCH (08:49)
[2018-12-14] MEDS: Gentamicin Oint 15 GM TUBE TP SCH (08:49)
[2018-12-14] MEDS: Cholecalciferol (D-3) 1,000 UNIT (25MCG) TABLET PO SCH (08:49)
[2018-12-14] MEDS: Aspirin 81 MG TAB.CHEW PO SCH (08:49)
[2018-12-14] MEDS: Insulin DETEMIR 100 UNIT/ML X5UNITS SQ SCH ×2 (08:49→21:11)
[2018-12-14] MEDS: Ondansetron ODT 4 MG TAB.RAPDIS SL PRN (10:35)
[2018-12-14] MEDS ORDERED: *HR* OxyCODONE/APAP 5/325 TABLET PO ONE (21:08)
[2018-12-14] MEDS: traZODone 50 MG TABLET PO PRN (21:12)
[2018-12-15] MEDS: Ascorbic Acid 500 MG TABLET PO SCH (05:46)
[2018-12-15] MEDS: Aspirin 81 MG TAB.CHEW PO SCH (08:00)
[2018-12-15] MEDS: Multivit/Ca/Min/Fe/FA 1 TAB TABLET PO SCH (08:00)
[2018-12-15] MEDS: Cholecalciferol (D-3) 1,000 UNIT (25MCG) TABLET PO SCH (08:00)
[2018-12-15] MEDS: *HR* OxyCODONE/APAP 5/325 TABLET PO PRN ×3 (08:00→22:52)
[2018-12-15] MEDS: VICTOZA SQ SCH (08:01)
[2018-12-15] MEDS: Insulin LISPRO 300 UNITS/3 ML VIAL SQ SCH ×3 (08:01→18:00)
[2018-12-15] MEDS: Gentamicin Oint 15 GM TUBE TP SCH (08:01)
[2018-12-15] MEDS: Insulin DETEMIR 100 UNIT/ML X5UNITS SQ SCH ×2 (09:27→21:19)
[2018-12-15] MEDS: traZODone 50 MG TABLET PO PRN (21:20)
[2018-12-16] MEDS: Ascorbic Acid 500 MG TABLET PO SCH (05:56)
[2018-12-16] MEDS: *HR* OxyCODONE/APAP 5/325 TABLET PO PRN ×2 (08:33→18:21)
[2018-12-16] MEDS: Aspirin 81 MG TAB.CHEW PO SCH (08:34)
[2018-12-16] MEDS: Multivit/Ca/Min/Fe/FA 1 TAB TABLET PO SCH (08:34)
[2018-12-16] MEDS: Insulin LISPRO 300 UNITS/3 ML VIAL SQ SCH ×3 (08:35→17:02)
[2018-12-16] MEDS: Cholecalciferol (D-3) 1,000 UNIT (25MCG) TABLET PO SCH (08:35)
[2018-12-16] MEDS: VICTOZA SQ SCH (08:39)
[2018-12-16] MEDS: Gentamicin Oint 15 GM TUBE TP SCH (09:53)
[2018-12-16] MEDS: Insulin DETEMIR 100 UNIT/ML X5UNITS SQ SCH ×2 (09:53→21:40)
--- NOTE | 2018-12-16 10:17 | Internal Med Progress Note ---
Date of Encounter: 12/16/18 Time of Encounter: 09:45 - Assessment and plan (1) Status post coronary artery bypass graft Current Visit: No Status: Acute Assessment and plan: December 01. Continue aspirin and Lopressor with PT/OT intervention. December 08. Continue present Rx. Add gentamicin cream to stab wounds daily December 10. She has follow-up today with her surgeon. December 11. The scheduled follow-up visit with her surgeon December 10 was not completed due to transportation not being arranged. The visit has been rescheduled for December 13. I offered yesterday to transfer her to [facility] so she could be seen as an inpatient but she declined transfer. December 13. Continue present Rx (2) Anemia Current Visit: Yes Status: Acute Assessment and plan: December 01. Anemia testing showed iron 36, transferrin saturation 12%, transferrin 216, ferritin 98, B12 352, and folate> 2.3 . Start ferrous sulfate with ascorbic acid in a.m. December 03. Hemoglobin has decreased slightly to 8.9. Continue to monitor. December 06. Hemoglobin increased to 9.6 on 12/04/2018. Recheck in a.m. December 08. Hemoglobin improved to 9.9. Continue to monitor periodically. December 10. Recheck labs in a.m. December 11. Hemoglobin further improved to 10.2 on labs yesterday. Recheck in a.m. December 12. Hemoglobin further improved to 10.4. December 16. Recheck labs in a.m. Qualifiers: Anemia type: unspecified type Qualified Code(s): D64.9 - Anemia, unspecified (3) Diabetes mellitus Current Visit: No Status: Chronic Assessment and plan: December 01. Hemoglobin A1c was 7.2% on 11/20/2018. Blood sugars are inadequately controlled at present. Levemir dose will be increased to 30 units twice a day. Continue Victoza and Accu-Cheks with SSI. December 02. Blood sugar slightly improved. Increase Levemir to 35 units twice a day. December 08. Blood sugars still slightly above desirable level. Increase Levemir to 40 units twice a day. December 10. Blood sugars show fluctuation. Continue present Rx. December 12. Blood sugars slightly above desirable range. Increase Levemir to 42 units twice a day December 16. Blood sugars acceptable. Continue present Rx. Qualifiers: Diabetes mellitus type: type 2 Diabetes mellitus usp insulin use: with manager long term care use Diabetes mellitus complication status: with neurologic complications Diabetes mellitus complication detail: with polyneuropathy Qualified Code(s): E11.42 - Type 2 diabetes mellitus with diabetic polyneuropathy; Z79.4 - terminal superintendent (current) use of insulin (4) Hypertension Current Visit: No Status: Chronic Assessment and plan: December 01. Continue lisinopril and Lopressor Qualifiers: Hypertension type: essential hypertension Qualified Code(s): I10 - Essential (primary) hypertension (5) Hyperlipemia Current Visit: No Status: Acute Assessment and plan: December 01. Continue atorvastatin Qualifiers: Hyperlipidemia type: other hyperlipidemia Qualified Code(s): E78.49 - Other hyperlipidemia; E78.4 - Other hyperlipidemia (6) Asthma Current Visit: No Status: Chronic Assessment and plan: December 01. Continue Asmanex and prn albuterol. Qualifiers: Asthma severity: mild Asthma persistence: intermittent Asthma complication type: uncomplicated Qualified Code(s): J45.20 - Mild intermittent asthma, uncomplicated (7) Chronic kidney disease, stage III (moderate) Current Visit: No Status: Chronic Assessment and plan: December 01. Monitor renal indices. (8) Constipation Current Visit: Yes Status: Acute Assessment and plan: December 06. She will be given magnesium citrate. December 08. Repeat magnesium citrate today since no BM has occurred. December 10. She reported December 08 having a BM. Qualifiers: Constipation type: unspecified constipation type Qualified Code(s): K59.00 - Constipation, unspecified (9) Rib fracture Current Visit: Yes Status: Acute Assessment and plan: December 10. I told her to discuss treatment when she follows with her cardiothoracic surgeon today. December 11. Confirmed on chest CT today. Her thoracic surgeon can further address at office visit on December 13. December 12. Asymptomatic. Cardiothoracic surgery can further address tomorrow. December 13. Remains asymptomatic. No Rx recommended by cardiothoracic surgery staff. Qualifiers: Encounter type: initial encounter Rib fracture type: single rib Fracture type: closed Laterality: left Qualified Code(s): S22.32XA - Fracture of one rib, left side, initial encounter for closed fracture (10) Closed coracoid process fracture Current Visit: Yes Status: Acute Assessment and plan: December 10. She was seen by [facility] who recommended nonoperative approach with sling placement. December 11. She was not wearing arm sling when I visited today. She has been instructed by nursing staff to wear it. December 12. I encouraged her to put her sling on after eating. December 13. She was not wearing her sling. I encouraged her again to wear it as prescribed. December 16. She was not wearing her sling today. I encouraged her again to wear but she stated she did not need to wear it. Qualifiers: Encounter type: initial encounter Fracture alignment: displaced Laterality: left Qualified Code(s): S42.132A - Displaced fracture of coracoid process, left shoulder, initial encounter for closed fracture - Subjective Interval history: December 01. She has no new complaints. December 02. She has no new complaints. She states her soreness is gradually decreasing. December 03. She has no new complaints and feels better. December 06. She has no new complaints. She reports constipation. December 08. She has no new complaints. December 10. She states she was ambulating to the bathroom during the night and fell striking her head and left shoulder area. Head CT showed no acute pathology. Left shoulder CT showed comminuted minimally displaced fracture of the coracoid process tip and mildly displaced fracture of the posterolateral left first rib. There was moderate to large left pleural effusion. December 11. She has no new complaints. She denies pain or dyspnea at rest. December 12. She has no new complaints. She denies pain in her neck or dyspnea. She states there is mild discomfort in her right parasternal area but it has been there since surgery and is improving. December 13. She has returned from her visit with cardiothoracic surgery staff. I hand wrote a note before she left for the appointment requesting evaluation and recommended Rx for the first rib fracture, left pleural effusion, and midline incision/stab wounds. The patient states she received a "good report" with no further recommendations for intervention. December 16. She has no new complaints. She reports still having some sternal discomfort. She states she has told her daughter she will not be going to a SNF in [place] but has chosen to remain in swing bed here. - Constitutional Vitals: Temp Pulse Resp BP Pulse Ox 98.3 F 79 16 118/58 93 12/16/18 06:33 12/16/18 06:33 12/16/18 09:13 12/16/18 06:33 12/16/18 09:13 Exam: She is resting comfortably in bed and appears in no acute distress. Sternal incision appears clean and without drainage. Stab wound show gradual healing without evidence of infection. A right upper leg wound shows granulation tissue without exudate. I reviewed her medications and lab results. Internal Medicine: Result - Labs CBC & Chem 7: 12/12/18 04:40 12/12/18 04:40 Consult Discharge Plan - Plan Referrals: Anna Dejesus, SEED LABORATORY ASSISTANT [Primary Care Provider] - 1 week
[2018-12-16] MEDS: traZODone 50 MG TABLET PO PRN (21:46)
[2018-12-17] MEDS: Ascorbic Acid 500 MG TABLET PO SCH (06:29)
[2018-12-17] MEDS: Ondansetron ODT 4 MG TAB.RAPDIS SL PRN (07:35)
[2018-12-17] MEDS: Insulin LISPRO 300 UNITS/3 ML VIAL SQ SCH ×3 (07:54→17:23)
[2018-12-17] MEDS: Cholecalciferol (D-3) 1,000 UNIT (25MCG) TABLET PO SCH (09:53)
[2018-12-17] MEDS: Multivit/Ca/Min/Fe/FA 1 TAB TABLET PO SCH (09:53)
[2018-12-17] MEDS: Aspirin 81 MG TAB.CHEW PO SCH (09:53)
[2018-12-17] MEDS: Gentamicin Oint 15 GM TUBE TP SCH (12:50)
[2018-12-17] MEDS: Insulin DETEMIR 100 UNIT/ML X5UNITS SQ SCH ×2 (12:50→21:08)
[2018-12-17] MEDS: VICTOZA SQ SCH (12:50)
[2018-12-17] MEDS: *HR* OxyCODONE/APAP 5/325 TABLET PO PRN ×2 (15:36→21:07)
[2018-12-17] MEDS: traZODone 50 MG TABLET PO PRN (21:08)
[2018-12-18] MEDS: Ascorbic Acid 500 MG TABLET PO SCH (06:54)
[2018-12-18] MEDS: Aspirin 81 MG TAB.CHEW PO SCH (09:40)
[2018-12-18] MEDS: Cholecalciferol (D-3) 1,000 UNIT (25MCG) TABLET PO SCH (09:41)
[2018-12-18] MEDS: *HR* OxyCODONE/APAP 5/325 TABLET PO PRN ×2 (09:41→17:13)
[2018-12-18] MEDS: Multivit/Ca/Min/Fe/FA 1 TAB TABLET PO SCH (09:41)
[2018-12-18] MEDS: Insulin DETEMIR 100 UNIT/ML X5UNITS SQ SCH ×2 (09:42→20:23)
[2018-12-18] MEDS: Insulin LISPRO 300 UNITS/3 ML VIAL SQ SCH ×3 (09:42→17:12)
[2018-12-18] MEDS: VICTOZA SQ SCH (09:43)
[2018-12-18] MEDS: Gentamicin Oint 15 GM TUBE TP SCH (17:50)
[2018-12-18] MEDS: traZODone 50 MG TABLET PO PRN (20:28)
[2018-12-19] MEDS: Ascorbic Acid 500 MG TABLET PO SCH (06:06)
[2018-12-19] MEDS: Insulin LISPRO 300 UNITS/3 ML VIAL SQ SCH ×3 (07:38→17:16)
[2018-12-19] MEDS: Insulin DETEMIR 100 UNIT/ML X5UNITS SQ SCH ×2 (09:43→20:41)
[2018-12-19] MEDS: *HR* OxyCODONE/APAP 5/325 TABLET PO PRN ×2 (09:43→19:44)
[2018-12-19] MEDS: Multivit/Ca/Min/Fe/FA 1 TAB TABLET PO SCH (09:43)
[2018-12-19] MEDS: Cholecalciferol (D-3) 1,000 UNIT (25MCG) TABLET PO SCH (09:44)
[2018-12-19] MEDS: Aspirin 81 MG TAB.CHEW PO SCH (09:44)
[2018-12-19] MEDS: VICTOZA SQ SCH (09:56)
[2018-12-19] MEDS: Gentamicin Oint 15 GM TUBE TP SCH (19:58)
[2018-12-19] MEDS: traZODone 50 MG TABLET PO PRN (20:40)
[2018-12-20] MEDS: Ascorbic Acid 500 MG TABLET PO SCH (06:37)
[2018-12-20 07:47] VITALS: BP 138/82
[2018-12-20] MEDS: Insulin DETEMIR 100 UNIT/ML X5UNITS SQ SCH (08:26)
[2018-12-20] MEDS: Gentamicin Oint 15 GM TUBE TP SCH (08:26)
[2018-12-20] MEDS: VICTOZA SQ SCH (08:26)
[2018-12-20] MEDS: Cholecalciferol (D-3) 1,000 UNIT (25MCG) TABLET PO SCH (08:26)
[2018-12-20] MEDS: Aspirin 81 MG TAB.CHEW PO SCH (08:26)
[2018-12-20] MEDS: Multivit/Ca/Min/Fe/FA 1 TAB TABLET PO SCH (08:26)
[2018-12-20] MEDS: Insulin LISPRO 300 UNITS/3 ML VIAL SQ SCH ×2 (08:27→11:52)
[2018-12-20] MEDS: *HR* OxyCODONE/APAP 5/325 TABLET PO PRN (08:28)
--- NOTE | 2018-12-20 14:30 | Discharge Summary ---
Orders not resulted at time of discharge: Pending orders 12/10/18 03:00 CT 3D reconstruction [CT] Routine Date of Encounter: 12/20/18 Time of Encounter: 14:15 - Discharge Diagnosis (1) Status post coronary artery bypass graft Priority: Primary Status: Acute (2) Anemia Priority: Secondary Status: Acute Qualifiers: Anemia type: unspecified type Qualified Code(s): D64.9 - Anemia, unspecified (3) Diabetes mellitus Priority: Secondary Status: Chronic Qualifiers: Diabetes mellitus type: type 2 Diabetes mellitus nursing home insulin use: with roasterman use Diabetes mellitus complication status: with neurologic complications Diabetes mellitus complication detail: with polyneuropathy Qualified Code(s): E11.42 - Type 2 diabetes mellitus with diabetic polyneuropathy; Z79.4 - penitentiary (current) use of insulin (4) Hypertension Priority: Secondary Status: Chronic Qualifiers: Hypertension type: essential hypertension Qualified Code(s): I10 - Essential (primary) hypertension (5) Hyperlipemia Priority: Secondary Status: Acute Qualifiers: Hyperlipidemia type: other hyperlipidemia Qualified Code(s): E78.49 - Other hyperlipidemia; E78.4 - Other hyperlipidemia (6) Asthma Priority: Secondary Status: Chronic Qualifiers: Asthma severity: mild Asthma persistence: intermittent Asthma complica tion type: uncomplicated Qualified Code(s): J45.20 - Mild intermittent asthma, uncomplicated (7) Chronic kidney disease, stage III (moderate) Priority: Secondary Status: Chronic (8) Constipation Priority: Secondary Status: Acute Qualifiers: Constipation type: unspecified constipation type Qualified Code(s): K59.00 - Constipation, unspecified (9) Rib fracture Priority: Secondary Status: Acute Qualifiers: Encounter type: initial encounter Rib fracture type: single rib Fracture type: closed Laterality: left Qualified Code(s): S22.32XA - Fracture of one rib, left side, initial encounter for closed fracture (10) Closed coracoid process fracture Priority: Secondary Status: Acute Qualifiers: Encounter type: initial encounter Fracture alignment: displaced Laterality: left Qualified Code(s): S42.132A - Displaced fracture of coracoid process, left shoulder, initial encounter for closed fracture Hospital course: Ms. Tapia is a 73 year old female who was admitted to [facility] swing bed after a November 19-November 29 [facility] hospitalization for CABG surgery. Heart catheter 11/19/2018 showed 60% stenosis in distal LMCA, 85% stenosis in proximal LAD, 90% stenosis in proximal circumflex, 20% stenosis in distal circumflex, 90% stenosis in the first marginal, 25% stenosis in mid RCA and 10% stenosis in distal RCA. She had PETERSON to LAD and SVG to OMB 2 of circumflex 11/22/2018.. Her postop course was unremarkable and she was admitted for redilatation therapy prior to returning to independent living at home. Initial orders written by the discharging physicians at [facility]. I saw her on November 30 and performed a swing bed history and physical. She had physical therapy and occupational therapy evaluations ongoing intervention. She made satisfactory progress. She will continue with therapy through home health services. On December 10 while ambulating to the bathroom independently during the night she fell striking her head and left shoulder area. Head CT showed no acute pathology. Left shoulder CT showed comminuted minimally displaced fracture of the coracoid process tip and mildly displaced fracture of the posterolateral left first rib. There was moderate to large left pleural effusion. On December 13 she was evaluated by cardiothoracic surgery for follow-up for CABG and these new findings. No additional recommendation was made for treatment of the rib fracture or left pleural effusion. Patient was essentially asymptomatic from the injuries. Orthopedist reviewed her coracoid process tip fracture and recommended immobilization sling. The patient declined to wear this. Patient's daughter in [place] strongly desired the patient to be transferred after discharge to a SNF in [place] where the daughter serves as DON. After contemplation the patient declined to be discharged to [place]. On December 20 the patient felt she was stable for discharge home. She will have home health services ordered. She will follow with her PCP Anna Dejesus CNP within 1 week and will follow with her cardiothoracic surgeon as directed. - Time Spent with Patient Total time spent providing and/or coordinating discharge services: - Discharge Medications Prescriptions: New Ferrous Sulfate 325 mg PO 0630 #30 tablet Insulin DETEMIR [Levemir] 42 unit SQ BID [id number] OxyCODONE/APAP 5/325 [Percocet 5/325 MG] 1 each PO Q6H PRN 3 Days #12 tablet PRN Reason: Pain traZODone [TraZODone] 50 mg PO HS PRN #7 tablet PRN Reason: Sleep Ascorbic Acid [Vitamin C] 500 mg PO 0630 #30 tablet Continued Rosuvastatin Calcium [Crestor] 5 mg PO HS Multivit-Min/Iron/Folic/Lutein [Centrum Silver Women Tablet] 1 tab PO DAILY Fluticasone Propionate [Flovent Diskus] 1 puff IH BID Dexlansoprazole [Dexilant] 60 mg PO HS Calcium Carbonate/Vitamin D3 [Calcium 500 + Vit D Caplet] 1 tab PO BID Sertraline [Zoloft] 100 mg PO DAILY Insulin ASPART [Novolog Flexpen] 0 - 25 unit SQ TIDAC Insulin Glargine,Hum.rec.anlog [Lantus Solostar] 0 - 100 unit SQ HS Liraglutide [Victoza 3-Jose] 1.8 mg SQ DAILY Lisinopril 2.5 mg PO QAM Aspirin 81 mg PO DAILY tab.chew Metoprolol [Lopressor] 50 mg PO BID #60 tablet Nortriptyline [Pamelor] 100 mg PO HS capsule Albuterol Sulfate [Ventolin Hfa] 2 puff IH Q6H PRN #1 hfa.aer.ad PRN Reason: Shortness Of Breath Home Medications: Rosuvastatin Calcium [Crestor] 5 mg PO HS 03/11/15 [History] Calcium Carbonate/Vitamin D3 [Calcium 500 + Vit D Caplet] 1 tab PO BID 09/30/16 [History] Dexlansoprazole [Dexilant] 60 mg PO HS 09/30/16 [History] Fluticasone Propionate [Flovent Diskus] 1 puff IH BID 09/30/16 [History] Multivit-Min/Iron/Folic/Lutein [Centrum Silver Women Tablet] 1 tab PO DAILY 09/30/16 [History] Sertraline [Zoloft] 100 mg PO DAILY 12/01/17 [History] Insulin ASPART [Novolog Flexpen] 0 - 25 unit SQ TIDAC 11/21/18 [History] Insulin Glargine,Hum.rec.anlog [Lantus Solostar] 0 - 100 unit SQ HS 11/21/18 [History] Liraglutide [Victoza 3-Jose] 1.8 mg SQ DAILY 11/21/18 [History] Lisinopril 2.5 mg PO QAM 11/21/18 [History] Aspirin 81 mg PO DAILY tab.chew 11/29/18 [Rx] Metoprolol [Lopressor] 50 mg PO BID #60 tablet 11/29/18 [Rx] Nortriptyline [Pamelor] 100 mg PO HS capsule 11/29/18 [Rx] Albuterol Sulfate [Ventolin Hfa] 2 puff IH Q6H PRN #1 hfa.aer.ad 12/20/18 [Rx] Ascorbic Acid [Vitamin C] 500 mg PO 0630 #30 tablet 12/20/18 [Rx] Ferrous Sulfate 325 mg PO 0630 #30 tablet 12/20/18 [Rx] Insulin DETEMIR [Levemir] 42 unit SQ BID [id number] 12/20/18 [Rx] OxyCODONE/APAP 5/325 [Percocet 5/325 MG] 1 each PO Q6H PRN 3 Days #12 tablet 12/20/18 [Rx] traZODone [TraZODone] 50 mg PO HS PRN #7 tablet 12/20/18 [Rx] Allergies/Adverse Reactions: Allergy/AdvReac Type Severity Reaction Status Date / Time hydromorphone [From Dilaudid] Allergy See Verified 11/21/18 11:47 Comments mannitol [From Reclast] AdvReac See Verified 11/21/18 11:47 Comments zoledronic acid AdvReac See Verified 11/21/18 11:47 [From Reclast] Comments Date of admission: 11/30/18 11:40 Primary care physician: Anna Dejesus CNP Consults: 11/30/18 11:08 Consult to Occupational Therapy [CONS] Routine Comment: Evaluate, develop and implement POC Reason for Consult: Evaluate, develop and implement POC Does patient have active BEDREST order?: No Is patient medically & hemodynamically stable?: Yes Patient assessed for mobility or mobilized this visit?: No Consult to Physical Therapy [CONS] Routine Comment: Evaluate, develop and implement POC Reason for Consult: Evaluate, develop and implement POC Does patient have active BEDREST order?: No Is patient medically & hemodynamically stable?: Yes Patient assessed for mobility or mobilized this visit?: No - Constitutional Vitals: Temp Pulse Resp BP Pulse Ox 97.6 F 88 12 138/82 91 12/20/18 07:28 12/20/18 07:28 12/20/18 09:06 12/20/18 07:28 12/20/18 09:06 - Patient Status Disposition: Home Health Service - Discharge Instructions Follow Up With: Anna Dejesus, REVERSER [Primary Care Provider] - 1 week - Diet and Activity Activity: as per physical therapy Diet: diabetic diet
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
== END 2018-12-20 16:24 | disposition home health service (06) | DRG 949 ==
LOC: INPPIK 11:40
PROVIDERS: ADMIT Internal Medicine; ATTEND Internal Medicine

== ENCOUNTER 2022-01-17 16:05 | Inpatient (IN) ==
[2022-01-17] MEDS ORDERED: Naloxone 0.4 MG/ML INJ IVP PRN (17:24)
[2022-01-17] MEDS ORDERED: D5% in Water 1,000 ML IVC PRN (17:43)
[2022-01-17] MEDS ORDERED: Dextrose Gel 15 GM/37.5 ML TUBE PO PRN ×2 (17:43)
[2022-01-17] MEDS ORDERED: *HR* Dextrose 50 % in Water (Syg) 50 ML SYRINGE IVP PRN (17:43)
[2022-01-17] MEDS ORDERED: Mag Hydrox/Al Hydrox/Simeth 30 ML UDC PO PRN (22:26)
[2022-01-17] MEDS ORDERED: MOM Conc 10 ML UD.LIQ PO PRN (22:26)
[2022-01-17] MEDS ORDERED: Melatonin 3 MG TABLET PO PRN (22:26)
[2022-01-17] MEDS ORDERED: Ondansetron 4 MG/2 ML VIAL IVP PRN (22:27)
[2022-01-17] MEDS: traZODone 50 MG TABLET PO SCH (22:50)
[2022-01-17] MEDS: *HR* OxyCODONE/APAP 5/325 TABLET PO PRN (22:50)
[2022-01-17] MEDS: Insulin LISPRO 300 UNITS/3 ML VIAL SUBQ SCH (22:51)
[2022-01-18] MEDS: *HR* OxyCODONE/APAP 5/325 TABLET PO PRN ×3 (07:38→21:14)
[2022-01-18] MEDS: (Mirabegron [Myrbetriq] 50 MG Tab.Er.24h) PO SCH (08:09)
[2022-01-18 08:47] LABS: Hematocrit 40.4 % (35.3-44.9); Hemoglobin 13.4 g/dL (11.5-15.4); Mean Corpuscular HGB Conc 33.2 g/dL (31.6-35.5); Mean Corpuscular Hemoglobin 29.3 pg (28.0-33.3); Mean Platelet Volume 10.8 fL (9.4-12.4); Platelet Count 122 K/mcL (140-400); Red Blood Count 4.57 M/mcL (3.82-4.97); Red Cell Distribution Width 14.2 % (11.5-14.5); White Blood Count 9.1 K/mcL (4.3-11.1)
[2022-01-18 09:01] LABS: Mean Corpuscular Volume 88.4 fL (83.0-100.0)
[2022-01-18 09:05] LABS: BUN/Creatinine Ratio 15 (6-26); Blood Urea Nitrogen 13 mg/dL (8-23); Calcium 8.6 mg/dL (8.6-10.3); Carbon Dioxide 29 mEq/L (23-29); Chloride 100 mEq/L (98-107); Glucose 215 mg/dL (70-105); Osmolality,Calculated 291 (280-300); Potassium 4.6 mEq/L (3.5-5.1); Sodium 137 mEq/L (136-145); eGFR For African Americans > 60 (> 60); eGFR For Non-African Americans > 60 (> 60)
[2022-01-18] MEDS: carvediloL 6.25 MG TABLET PO SCH ×2 (09:22→17:08)
[2022-01-18] MEDS: Multivit/Ca/Min/Fe/FA 1 TAB TABLET PO SCH (09:22)
[2022-01-18] MEDS: lisinopriL 5 MG TABLET PO SCH (09:22)
[2022-01-18] MEDS: Ascorbic Acid 500 MG TABLET PO SCH (09:22)
[2022-01-18] MEDS: diazePAM 5 MG TABLET PO SCH (09:22)
[2022-01-18] MEDS: Aspirin Enteric Coated 81 MG Tablet PO SCH (09:22)
[2022-01-18] MEDS: Insulin LISPRO 300 UNITS/3 ML VIAL SUBQ SCH ×5 (09:23→21:16)
[2022-01-18] MEDS: polyethylene glycoL 3350 17 GM POWD.PACK PO SCH (09:25)
[2022-01-18] MEDS ORDERED: Insulin DETEMIR 100 UNIT/ML X5UNITS SUBQ SCH (21:00)
[2022-01-18] MEDS: traZODone 50 MG TABLET PO SCH (21:15)
[2022-01-19] MEDS: lisinopriL 5 MG TABLET PO SCH (07:58)
[2022-01-19] MEDS: polyethylene glycoL 3350 17 GM POWD.PACK PO SCH (07:58)
[2022-01-19] MEDS: Insulin LISPRO 300 UNITS/3 ML VIAL SUBQ SCH ×7 (07:59→21:32)
[2022-01-19] MEDS: Ascorbic Acid 500 MG TABLET PO SCH (07:59)
[2022-01-19] MEDS: Multivit/Ca/Min/Fe/FA 1 TAB TABLET PO SCH (07:59)
[2022-01-19] MEDS: diazePAM 5 MG TABLET PO SCH (07:59)
[2022-01-19] MEDS: carvediloL 6.25 MG TABLET PO SCH ×2 (07:59→16:22)
[2022-01-19] MEDS: Aspirin Enteric Coated 81 MG Tablet PO SCH (07:59)
[2022-01-19] MEDS: (Mirabegron [Myrbetriq] 50 MG Tab.Er.24h) PO SCH (08:03)
[2022-01-19 09:24] LABS: BUN/Creatinine Ratio 17 (6-26); Blood Urea Nitrogen 16 mg/dL (8-23); Calcium 8.5 mg/dL (8.6-10.3); Carbon Dioxide 27 mEq/L (23-29); Chloride 97 mEq/L (98-107); Glucose 388 mg/dL (70-105); Osmolality,Calculated 295 (280-300); Potassium 4.7 mEq/L (3.5-5.1); Sodium 134 mEq/L (136-145); eGFR For African Americans > 60 (> 60); eGFR For Non-African Americans 59 (> 60)
[2022-01-19] MEDS: Acetaminophen 325 MG TABLET PO PRN (09:45)
[2022-01-19 10:01] LABS: Hematocrit 38.5 % (35.3-44.9); Hemoglobin 12.6 g/dL (11.5-15.4); Mean Corpuscular HGB Conc 32.7 g/dL (31.6-35.5); Mean Corpuscular Hemoglobin 29.1 pg (28.0-33.3); Mean Corpuscular Volume 88.9 fL (83.0-100.0); Mean Platelet Volume 10.1 fL (9.4-12.4); Platelet Count 152 K/mcL (140-400); Red Blood Count 4.33 M/mcL (3.82-4.97); Red Cell Distribution Width 14.5 % (11.5-14.5); White Blood Count 9.6 K/mcL (4.3-11.1)
[2022-01-19] MEDS: *HR* OxyCODONE/APAP 5/325 TABLET PO PRN ×2 (12:01→20:58)
[2022-01-19] MEDS: traZODone 50 MG TABLET PO SCH (20:58)
[2022-01-19] MEDS ORDERED: Insulin DETEMIR 100 UNIT/ML X5UNITS SUBQ SCH (21:00)
[2022-01-20 06:38] VITALS: RESP 16
[2022-01-20 07:39] LABS: Hematocrit 43.5 % (35.3-44.9); Hemoglobin 13.8 g/dL (11.5-15.4); Mean Corpuscular HGB Conc 31.7 g/dL (31.6-35.5); Mean Corpuscular Hemoglobin 28.9 pg (28.0-33.3); Mean Corpuscular Volume 91.2 fL (83.0-100.0); Mean Platelet Volume 10.3 fL (9.4-12.4); Platelet Count 163 K/mcL (140-400); Red Blood Count 4.77 M/mcL (3.82-4.97); Red Cell Distribution Width 14.8 % (11.5-14.5); White Blood Count 9.7 K/mcL (4.3-11.1)
[2022-01-20] MEDS: polyethylene glycoL 3350 17 GM POWD.PACK PO SCH (08:01)
[2022-01-20] MEDS: Ascorbic Acid 500 MG TABLET PO SCH (08:01)
[2022-01-20] MEDS: Multivit/Ca/Min/Fe/FA 1 TAB TABLET PO SCH (08:01)
[2022-01-20 08:02] LABS: Calcium 8.4 mg/dL (8.6-10.3); Potassium 4.9 mEq/L (3.5-5.1)
[2022-01-20] MEDS: Insulin LISPRO 300 UNITS/3 ML VIAL SUBQ SCH ×4 (08:06→11:47)
[2022-01-20] MEDS: Aspirin Enteric Coated 81 MG Tablet PO SCH (08:42)
[2022-01-20] MEDS: (Mirabegron [Myrbetriq] 50 MG Tab.Er.24h) PO SCH (08:42)
[2022-01-20] MEDS: lisinopriL 5 MG TABLET PO SCH (08:49)
[2022-01-20] MEDS: Acetaminophen 325 MG TABLET PO PRN (08:50)
[2022-01-20 11:09] VITALS: BP 104/59; PULSE 87; TEMP 97.9; O2SAT 92
== END 2022-01-20 15:35 | disposition other institution (70) | DRG 563 ==
LOC: PREOBSVTOIN 19:48 → INPPIK 22:07
PROVIDERS: ADMIT Family Medicine; ATTEND Student in an Organized Health Care Education/Training Program

== ENCOUNTER 2022-01-20 15:07 | Inpatient (IN) ==
[2022-01-20] MEDS ORDERED: Dextrose Gel 15 GM/37.5 ML TUBE PO PRN ×2 (17:41)
[2022-01-20] MEDS ORDERED: D5% in Water 1,000 ML IVC PRN (17:41)
[2022-01-20] MEDS ORDERED: *HR* Dextrose 50 % in Water (Syg) 50 ML SYRINGE IVP PRN (17:41)
[2022-01-20] MEDS ORDERED: Ondansetron ODT 4 MG TAB.RAPDIS SL PRN (17:42)
[2022-01-20] MEDS: Insulin LISPRO 300 UNITS/3 ML VIAL SUBQ SCH ×2 (17:59→18:00)
[2022-01-20] MEDS: Acetaminophen 325 MG TABLET PO PRN (18:27)
[2022-01-20] MEDS: traZODone 50 MG TABLET PO SCH (21:23)
[2022-01-20] MEDS: Insulin DETEMIR 100 UNIT/ML X5UNITS SUBQ SCH (21:23)
[2022-01-21] MEDS: Acetaminophen 325 MG TABLET PO PRN (00:11)
[2022-01-21 07:18] LABS: Basophils % 0.3 %; Eosinophils # 0.2 K/mcL (0.0-0.6); Eosinophils % 2.5 %; Hematocrit 39.5 % (35.3-44.9); Hemoglobin 12.6 g/dL (11.5-15.4); Immature Granulocytes % 0.4 % (0-4); Mean Corpuscular HGB Conc 31.9 g/dL (31.6-35.5); Mean Platelet Volume 10.1 fL (9.4-12.4); Monocytes # 0.8 K/mcL (0.0-1.3); Neutrophils # 5.3 K/mcL (1.6-8.9); Platelet Count 162 K/mcL (140-400); Red Blood Count 4.34 M/mcL (3.82-4.97); Red Cell Distribution Width 14.8 % (11.5-14.5); Segmented Neutrophils % 56.8 %; White Blood Count 9.4 K/mcL (4.3-11.1)
[2022-01-21] MEDS ORDERED: Insulin LISPRO 300 UNITS/3 ML VIAL SUBQ SCH ×2 (07:30→08:00)
[2022-01-21 07:41] LABS: BUN/Creatinine Ratio 20 (6-26); Blood Urea Nitrogen 21 mg/dL (8-23); Calcium 8.5 mg/dL (8.6-10.3); Carbon Dioxide 37 mEq/L (23-29); Chloride 98 mEq/L (98-107); Glucose 270 mg/dL (70-105); Osmolality,Calculated 303 (280-300); Sodium 140 mEq/L (136-145); eGFR For African Americans > 60 (> 60); eGFR For Non-African Americans 50 (> 60)
[2022-01-21] MEDS ORDERED: polyethylene glycoL 3350 17 GM POWD.PACK PO SCH (09:00)
[2022-01-21] MEDS: Aspirin Enteric Coated 81 MG Tablet PO SCH (09:29)
[2022-01-21] MEDS: lisinopriL 5 MG TABLET PO SCH (09:29)
[2022-01-21] MEDS: diazePAM 5 MG TABLET PO SCH (09:30)
[2022-01-21] MEDS: Insulin LISPRO 300 UNITS/3 ML VIAL SUBQ SCH ×7 (09:30→22:06)
[2022-01-21] MEDS: Ascorbic Acid 500 MG TABLET PO SCH (09:30)
[2022-01-21] MEDS: carvediloL 6.25 MG TABLET PO SCH ×2 (09:30→16:46)
[2022-01-21] MEDS: Multivit/Ca/Min/Fe/FA 1 TAB TABLET PO SCH (09:30)
[2022-01-21] MEDS: Mirabegron [Myrbetriq] 50 MG Tab.Er.24h PO SCH (09:31)
[2022-01-21] MEDS ORDERED: D5% in Water 1,000 ML IVC PRN (12:25)
[2022-01-21] MEDS ORDERED: *HR* Dextrose 50 % in Water (Syg) 50 ML SYRINGE IVP PRN (12:25)
[2022-01-21] MEDS ORDERED: Dextrose Gel 15 GM/37.5 ML TUBE PO PRN ×2 (12:25)
[2022-01-21] MEDS: Insulin DETEMIR 100 UNIT/ML X5UNITS SUBQ SCH (22:12)
[2022-01-21] MEDS: traZODone 50 MG TABLET PO SCH (22:18)
[2022-01-21] MEDS: Sennosides/Docusate Sodium TABLET PO SCH (22:18)
[2022-01-21] MEDS: Budesonide/Formoterol 160/4.5 1 PUFF INH IH SCH (22:33)
[2022-01-22] MEDS: Aspirin Enteric Coated 81 MG Tablet PO SCH (08:07)
[2022-01-22] MEDS: diazePAM 5 MG TABLET PO SCH (08:07)
[2022-01-22] MEDS: lisinopriL 5 MG TABLET PO SCH (08:07)
[2022-01-22] MEDS: Multivit/Ca/Min/Fe/FA 1 TAB TABLET PO SCH (08:08)
[2022-01-22] MEDS: Ascorbic Acid 500 MG TABLET PO SCH (08:08)
[2022-01-22] MEDS: Sennosides/Docusate Sodium TABLET PO SCH ×2 (08:08→20:18)
[2022-01-22] MEDS: carvediloL 6.25 MG TABLET PO SCH ×2 (08:08→19:29)
[2022-01-22] MEDS: Insulin LISPRO 300 UNITS/3 ML VIAL SUBQ SCH ×7 (08:09→20:19)
[2022-01-22] MEDS: Mirabegron [Myrbetriq] 50 MG Tab.Er.24h PO SCH (08:12)
[2022-01-22] MEDS: Budesonide/Formoterol 160/4.5 1 PUFF INH IH SCH ×2 (08:50→21:34)
[2022-01-22] MEDS: traZODone 50 MG TABLET PO SCH (20:18)
[2022-01-22] MEDS: Insulin DETEMIR 100 UNIT/ML X5UNITS SUBQ SCH (20:21)
[2022-01-23] MEDS: Ascorbic Acid 500 MG TABLET PO SCH (08:53)
[2022-01-23] MEDS: Sennosides/Docusate Sodium TABLET PO SCH ×2 (08:53→20:53)
[2022-01-23] MEDS: diazePAM 5 MG TABLET PO SCH (08:53)
[2022-01-23] MEDS: carvediloL 6.25 MG TABLET PO SCH ×2 (08:53→16:44)
[2022-01-23] MEDS: Mirabegron [Myrbetriq] 50 MG Tab.Er.24h PO SCH (08:54)
[2022-01-23] MEDS: Aspirin Enteric Coated 81 MG Tablet PO SCH (08:54)
[2022-01-23] MEDS: Multivit/Ca/Min/Fe/FA 1 TAB TABLET PO SCH (08:54)
[2022-01-23] MEDS: lisinopriL 5 MG TABLET PO SCH (08:54)
[2022-01-23] MEDS: Insulin LISPRO 300 UNITS/3 ML VIAL SUBQ SCH ×7 (08:55→20:48)
[2022-01-23] MEDS: Budesonide/Formoterol 160/4.5 1 PUFF INH IH SCH ×2 (09:08→21:29)
[2022-01-23] MEDS: Acetaminophen 325 MG TABLET PO PRN ×2 (13:46→20:55)
[2022-01-23] MEDS: Insulin DETEMIR 100 UNIT/ML X5UNITS SUBQ SCH (20:52)
[2022-01-23] MEDS: traZODone 50 MG TABLET PO SCH (20:53)
[2022-01-24] MEDS: Sennosides/Docusate Sodium TABLET PO SCH (07:37)
[2022-01-24] MEDS: Aspirin Enteric Coated 81 MG Tablet PO SCH (07:37)
[2022-01-24] MEDS: lisinopriL 5 MG TABLET PO SCH (07:37)
[2022-01-24] MEDS: carvediloL 6.25 MG TABLET PO SCH ×2 (07:37→17:35)
[2022-01-24] MEDS: Multivit/Ca/Min/Fe/FA 1 TAB TABLET PO SCH (07:37)
[2022-01-24] MEDS: Mirabegron [Myrbetriq] 50 MG Tab.Er.24h PO SCH (07:38)
[2022-01-24] MEDS: Insulin LISPRO 300 UNITS/3 ML VIAL SUBQ SCH ×6 (07:38→17:34)
[2022-01-24] MEDS: diazePAM 5 MG TABLET PO SCH (07:38)
[2022-01-24] MEDS: Ascorbic Acid 500 MG TABLET PO SCH (07:40)
[2022-01-24] MEDS: Insulin DETEMIR 100 UNIT/ML X5UNITS SUBQ SCH ×2 (09:59→22:56)
[2022-01-24] MEDS: Budesonide/Formoterol 160/4.5 1 PUFF INH IH SCH ×2 (11:01→21:38)
[2022-01-24] MEDS ORDERED: MOM Conc 10 ML UD.LIQ PO ONE (14:47)
[2022-01-24] MEDS: traZODone 50 MG TABLET PO SCH (22:57)
[2022-01-25] MEDS: Insulin LISPRO 300 UNITS/3 ML VIAL SUBQ SCH ×8 (00:03→20:02)
[2022-01-25] MEDS: Sennosides/Docusate Sodium TABLET PO SCH ×3 (00:04→19:55)
[2022-01-25] MEDS: *HR* OxyCODONE Immed Rel 5 MG TABLET PO PRN ×3 (00:46→23:42)
[2022-01-25] MEDS: diazePAM 5 MG TABLET PO SCH (08:53)
[2022-01-25] MEDS: Aspirin Enteric Coated 81 MG Tablet PO SCH (08:53)
[2022-01-25] MEDS: lisinopriL 5 MG TABLET PO SCH (08:53)
[2022-01-25] MEDS: carvediloL 6.25 MG TABLET PO SCH ×2 (08:53→17:31)
[2022-01-25] MEDS: Ascorbic Acid 500 MG TABLET PO SCH (08:53)
[2022-01-25] MEDS: Multivit/Ca/Min/Fe/FA 1 TAB TABLET PO SCH (08:54)
[2022-01-25] MEDS: Mirabegron [Myrbetriq] 50 MG Tab.Er.24h PO SCH (09:00)
[2022-01-25] MEDS: Budesonide/Formoterol 160/4.5 1 PUFF INH IH SCH ×2 (09:02→21:24)
[2022-01-25] MEDS: VICTOZA 1.8 MG SUBQ SCH (09:05)
[2022-01-25] MEDS: Insulin DETEMIR 100 UNIT/ML X5UNITS SUBQ SCH ×2 (09:12→19:56)
[2022-01-25] MEDS: traZODone 50 MG TABLET PO SCH (19:55)
[2022-01-26] MEDS: VICTOZA 1.8 MG SUBQ SCH (07:45)
[2022-01-26] MEDS: Insulin LISPRO 300 UNITS/3 ML VIAL SUBQ SCH ×7 (07:45→19:45)
[2022-01-26] MEDS: Aspirin Enteric Coated 81 MG Tablet PO SCH (07:46)
[2022-01-26] MEDS: diazePAM 5 MG TABLET PO SCH (07:46)
[2022-01-26] MEDS: Ascorbic Acid 500 MG TABLET PO SCH (07:46)
[2022-01-26] MEDS: carvediloL 6.25 MG TABLET PO SCH ×2 (07:46→16:52)
[2022-01-26] MEDS: Multivit/Ca/Min/Fe/FA 1 TAB TABLET PO SCH (07:46)
[2022-01-26] MEDS: lisinopriL 5 MG TABLET PO SCH (07:47)
[2022-01-26] MEDS: Sennosides/Docusate Sodium TABLET PO SCH ×2 (07:47→19:44)
[2022-01-26] MEDS: Mirabegron [Myrbetriq] 50 MG Tab.Er.24h PO SCH (07:47)
[2022-01-26] MEDS: Budesonide/Formoterol 160/4.5 1 PUFF INH IH SCH ×2 (08:55→22:11)
[2022-01-26] MEDS: *HR* OxyCODONE Immed Rel 5 MG TABLET PO PRN ×2 (11:21→19:44)
[2022-01-26] MEDS: traZODone 50 MG TABLET PO SCH (19:44)
[2022-01-26] MEDS: Insulin DETEMIR 100 UNIT/ML X5UNITS SUBQ SCH (19:45)
[2022-01-27] MEDS: *HR* OxyCODONE Immed Rel 5 MG TABLET PO PRN (03:22)
[2022-01-27] MEDS: carvediloL 6.25 MG TABLET PO SCH ×2 (07:47→16:38)
[2022-01-27] MEDS: Ascorbic Acid 500 MG TABLET PO SCH (07:47)
[2022-01-27] MEDS: Aspirin Enteric Coated 81 MG Tablet PO SCH (07:47)
[2022-01-27] MEDS: diazePAM 5 MG TABLET PO SCH (07:47)
[2022-01-27] MEDS: lisinopriL 5 MG TABLET PO SCH (07:47)
[2022-01-27] MEDS: Multivit/Ca/Min/Fe/FA 1 TAB TABLET PO SCH (07:47)
[2022-01-27] MEDS: Sennosides/Docusate Sodium TABLET PO SCH ×2 (07:48→21:29)
[2022-01-27] MEDS: Insulin LISPRO 300 UNITS/3 ML VIAL SUBQ SCH ×7 (07:49→21:29)
[2022-01-27] MEDS: Mirabegron [Myrbetriq] 50 MG Tab.Er.24h PO SCH (07:51)
[2022-01-27] MEDS: VICTOZA 1.8 MG SUBQ SCH (07:51)
[2022-01-27] MEDS: Budesonide/Formoterol 160/4.5 1 PUFF INH IH SCH ×2 (09:31→22:15)
[2022-01-27] MEDS: *HR* HYDROcodone/Acet 5/325 mg TABLET PO PRN ×2 (10:09→21:27)
[2022-01-27] MEDS: traZODone 50 MG TABLET PO SCH (21:28)
[2022-01-27] MEDS: Insulin DETEMIR 100 UNIT/ML X5UNITS SUBQ SCH (21:29)
[2022-01-28] MEDS: diazePAM 5 MG TABLET PO SCH (08:10)
[2022-01-28] MEDS: Ascorbic Acid 500 MG TABLET PO SCH (08:10)
[2022-01-28] MEDS: Multivit/Ca/Min/Fe/FA 1 TAB TABLET PO SCH (08:10)
[2022-01-28] MEDS: carvediloL 6.25 MG TABLET PO SCH ×2 (08:10→17:02)
[2022-01-28] MEDS: *HR* HYDROcodone/Acet 5/325 mg TABLET PO PRN ×3 (08:11→21:04)
[2022-01-28] MEDS: Aspirin Enteric Coated 81 MG Tablet PO SCH (08:11)
[2022-01-28] MEDS: Sennosides/Docusate Sodium TABLET PO SCH ×2 (08:11→21:04)
[2022-01-28] MEDS: lisinopriL 5 MG TABLET PO SCH (08:12)
[2022-01-28] MEDS: Insulin LISPRO 300 UNITS/3 ML VIAL SUBQ SCH ×7 (08:14→21:00)
[2022-01-28] MEDS: Mirabegron [Myrbetriq] 50 MG Tab.Er.24h PO SCH (08:15)
[2022-01-28] MEDS: VICTOZA 1.8 MG SUBQ SCH (08:16)
[2022-01-28] MEDS: Budesonide/Formoterol 160/4.5 1 PUFF INH IH SCH ×2 (10:12→22:31)
[2022-01-28] MEDS: traZODone 50 MG TABLET PO SCH (21:04)
[2022-01-28] MEDS: Insulin DETEMIR 100 UNIT/ML X5UNITS SUBQ SCH (21:05)
[2022-01-29] MEDS: Budesonide/Formoterol 160/4.5 1 PUFF INH IH SCH ×2 (07:47→21:12)
[2022-01-29 08:14] LABS: Hemoglobin 11.4 g/dL (11.5-15.4); Mean Corpuscular HGB Conc 32.6 g/dL (31.6-35.5); Mean Corpuscular Hemoglobin 29.3 pg (28.0-33.3); Mean Platelet Volume 10.4 fL (9.4-12.4); Platelet Count 192 K/mcL (140-400); Red Blood Count 3.89 M/mcL (3.82-4.97); Red Cell Distribution Width 16.1 % (11.5-14.5); White Blood Count 7.3 K/mcL (4.3-11.1)
[2022-01-29 08:27] LABS: Calcium 8.6 mg/dL (8.6-10.3); Potassium 4.3 mEq/L (3.5-5.1)
[2022-01-29] MEDS: diazePAM 5 MG TABLET PO SCH (09:01)
[2022-01-29] MEDS: carvediloL 6.25 MG TABLET PO SCH ×2 (09:01→17:28)
[2022-01-29] MEDS: lisinopriL 5 MG TABLET PO SCH (09:01)
[2022-01-29] MEDS: Aspirin Enteric Coated 81 MG Tablet PO SCH (09:01)
[2022-01-29] MEDS: Multivit/Ca/Min/Fe/FA 1 TAB TABLET PO SCH (09:01)
[2022-01-29] MEDS: Sennosides/Docusate Sodium TABLET PO SCH ×2 (09:02→21:55)
[2022-01-29] MEDS: Ascorbic Acid 500 MG TABLET PO SCH (09:02)
[2022-01-29] MEDS: Mirabegron [Myrbetriq] 50 MG Tab.Er.24h PO SCH (09:03)
[2022-01-29] MEDS: Insulin LISPRO 300 UNITS/3 ML VIAL SUBQ SCH ×7 (09:03→21:56)
[2022-01-29] MEDS: VICTOZA 1.8 MG SUBQ SCH ×2 (09:05→17:29)
[2022-01-29] MEDS: *HR* HYDROcodone/Acet 5/325 mg TABLET PO PRN ×2 (10:24→21:55)
[2022-01-29] MEDS: traZODone 50 MG TABLET PO SCH (21:55)
[2022-01-29] MEDS: Insulin DETEMIR 100 UNIT/ML X5UNITS SUBQ SCH (21:57)
[2022-01-30] MEDS: Aspirin Enteric Coated 81 MG Tablet PO SCH (08:48)
[2022-01-30] MEDS: Multivit/Ca/Min/Fe/FA 1 TAB TABLET PO SCH (08:49)
[2022-01-30] MEDS: Sennosides/Docusate Sodium TABLET PO SCH ×2 (08:50→21:11)
[2022-01-30] MEDS: Ascorbic Acid 500 MG TABLET PO SCH (08:51)
[2022-01-30] MEDS: carvediloL 6.25 MG TABLET PO SCH ×2 (08:51→17:30)
[2022-01-30] MEDS: lisinopriL 5 MG TABLET PO SCH ×2 (08:55→11:36)
[2022-01-30] MEDS: diazePAM 5 MG TABLET PO SCH (08:56)
[2022-01-30] MEDS: *HR* HYDROcodone/Acet 5/325 mg TABLET PO PRN ×3 (08:56→17:31)
[2022-01-30] MEDS: Insulin LISPRO 300 UNITS/3 ML VIAL SUBQ SCH ×7 (08:59→21:12)
[2022-01-30] MEDS: Mirabegron [Myrbetriq] 50 MG Tab.Er.24h PO SCH (09:00)
[2022-01-30] MEDS: Budesonide/Formoterol 160/4.5 1 PUFF INH IH SCH ×2 (09:43→21:39)
[2022-01-30] MEDS ORDERED: MOM Conc 10 ML UD.LIQ PO ONE (12:06)
[2022-01-30] MEDS: VICTOZA 1.8 MG SUBQ SCH (17:28)
[2022-01-30] MEDS: traZODone 50 MG TABLET PO SCH (21:11)
[2022-01-30] MEDS: Insulin DETEMIR 100 UNIT/ML X5UNITS SUBQ SCH ×2 (21:12→21:14)
[2022-01-31] MEDS: *HR* HYDROcodone/Acet 5/325 mg TABLET PO PRN ×4 (01:14→17:40)
[2022-01-31] MEDS: Multivit/Ca/Min/Fe/FA 1 TAB TABLET PO SCH (08:06)
[2022-01-31] MEDS: carvediloL 6.25 MG TABLET PO SCH ×2 (08:06→17:41)
[2022-01-31] MEDS: lisinopriL 5 MG TABLET PO SCH (08:06)
[2022-01-31] MEDS: Aspirin Enteric Coated 81 MG Tablet PO SCH (08:06)
[2022-01-31] MEDS: Insulin LISPRO 300 UNITS/3 ML VIAL SUBQ SCH ×7 (08:07→20:09)
[2022-01-31] MEDS: Ascorbic Acid 500 MG TABLET PO SCH (08:07)
[2022-01-31] MEDS: Mirabegron [Myrbetriq] 50 MG Tab.Er.24h PO SCH (08:07)
[2022-01-31] MEDS: Sennosides/Docusate Sodium TABLET PO SCH ×2 (08:07→20:10)
[2022-01-31] MEDS: diazePAM 5 MG TABLET PO SCH (08:07)
[2022-01-31] MEDS: Budesonide/Formoterol 160/4.5 1 PUFF INH IH SCH ×2 (10:18→21:49)
[2022-01-31] MEDS: VICTOZA 1.8 MG SUBQ SCH (17:46)
[2022-01-31] MEDS: traZODone 50 MG TABLET PO SCH (20:08)
[2022-01-31] MEDS: Insulin DETEMIR 100 UNIT/ML X5UNITS SUBQ SCH (20:08)
[2022-02-01] MEDS: *HR* HYDROcodone/Acet 5/325 mg TABLET PO PRN ×4 (04:40→23:22)
[2022-02-01] MEDS: *HR* Enoxaparin 40 MG/0.4 ML SYRINGE SQ SCH (06:22)
[2022-02-01] MEDS: diazePAM 5 MG TABLET PO SCH (08:16)
[2022-02-01] MEDS: Aspirin Enteric Coated 81 MG Tablet PO SCH (08:16)
[2022-02-01] MEDS: Ascorbic Acid 500 MG TABLET PO SCH (08:17)
[2022-02-01] MEDS: lisinopriL 5 MG TABLET PO SCH (08:17)
[2022-02-01] MEDS: Sennosides/Docusate Sodium TABLET PO SCH ×2 (08:17→20:05)
[2022-02-01] MEDS: carvediloL 6.25 MG TABLET PO SCH ×2 (08:17→17:13)
[2022-02-01] MEDS: Multivit/Ca/Min/Fe/FA 1 TAB TABLET PO SCH (08:17)
[2022-02-01] MEDS: Insulin LISPRO 300 UNITS/3 ML VIAL SUBQ SCH ×7 (08:18→20:06)
[2022-02-01] MEDS: Mirabegron [Myrbetriq] 50 MG Tab.Er.24h PO SCH (08:19)
[2022-02-01] MEDS: Budesonide/Formoterol 160/4.5 1 PUFF INH IH SCH ×2 (08:36→21:18)
[2022-02-01] MEDS: VICTOZA 1.8 MG SUBQ SCH (17:15)
[2022-02-01] MEDS: traZODone 50 MG TABLET PO SCH (20:06)
[2022-02-01] MEDS: Insulin DETEMIR 100 UNIT/ML X5UNITS SUBQ SCH (20:06)
[2022-02-02] MEDS: *HR* HYDROcodone/Acet 5/325 mg TABLET PO PRN ×3 (06:03→20:36)
[2022-02-02] MEDS: *HR* Enoxaparin 40 MG/0.4 ML SYRINGE SQ SCH (06:03)
[2022-02-02] MEDS: Aspirin Enteric Coated 81 MG Tablet PO SCH (08:12)
[2022-02-02] MEDS: Sennosides/Docusate Sodium TABLET PO SCH ×2 (08:13→20:36)
[2022-02-02] MEDS: carvediloL 6.25 MG TABLET PO SCH ×2 (08:13→17:45)
[2022-02-02] MEDS: lisinopriL 5 MG TABLET PO SCH (08:13)
[2022-02-02] MEDS: diazePAM 5 MG TABLET PO SCH (08:13)
[2022-02-02] MEDS: Multivit/Ca/Min/Fe/FA 1 TAB TABLET PO SCH (08:13)
[2022-02-02] MEDS: Ascorbic Acid 500 MG TABLET PO SCH (08:13)
[2022-02-02] MEDS: Mirabegron [Myrbetriq] 50 MG Tab.Er.24h PO SCH (08:14)
[2022-02-02] MEDS: Insulin LISPRO 300 UNITS/3 ML VIAL SUBQ SCH ×7 (08:15→20:37)
[2022-02-02] MEDS: Budesonide/Formoterol 160/4.5 1 PUFF INH IH SCH ×2 (09:22→21:04)
[2022-02-02] MEDS: VICTOZA 1.8 MG SUBQ SCH (17:46)
[2022-02-02] MEDS: traZODone 50 MG TABLET PO SCH (20:36)
[2022-02-02] MEDS: Insulin DETEMIR 100 UNIT/ML X5UNITS SUBQ SCH (20:37)
[2022-02-03] MEDS: *HR* Enoxaparin 40 MG/0.4 ML SYRINGE SQ SCH (04:45)
[2022-02-03] MEDS: *HR* HYDROcodone/Acet 5/325 mg TABLET PO PRN ×3 (04:45→20:24)
[2022-02-03] MEDS: Budesonide/Formoterol 160/4.5 1 PUFF INH IH SCH ×2 (08:49→21:14)
[2022-02-03] MEDS: Multivit/Ca/Min/Fe/FA 1 TAB TABLET PO SCH (09:08)
[2022-02-03] MEDS: carvediloL 6.25 MG TABLET PO SCH ×2 (09:09→17:34)
[2022-02-03] MEDS: lisinopriL 5 MG TABLET PO SCH (09:09)
[2022-02-03] MEDS: Sennosides/Docusate Sodium TABLET PO SCH ×2 (09:09→20:25)
[2022-02-03] MEDS: diazePAM 5 MG TABLET PO SCH (09:09)
[2022-02-03] MEDS: Ascorbic Acid 500 MG TABLET PO SCH (09:09)
[2022-02-03] MEDS: Aspirin Enteric Coated 81 MG Tablet PO SCH (09:09)
[2022-02-03] MEDS: Insulin LISPRO 300 UNITS/3 ML VIAL SUBQ SCH ×7 (09:10→20:23)
[2022-02-03] MEDS: Mirabegron [Myrbetriq] 50 MG Tab.Er.24h PO SCH (09:12)
[2022-02-03] MEDS: VICTOZA 1.8 MG SUBQ SCH (17:34)
[2022-02-03] MEDS: Insulin DETEMIR 100 UNIT/ML X5UNITS SUBQ SCH (20:24)
[2022-02-03] MEDS: traZODone 50 MG TABLET PO SCH (20:24)
[2022-02-04] MEDS: *HR* Enoxaparin 40 MG/0.4 ML SYRINGE SQ SCH (06:28)
[2022-02-04] MEDS: *HR* HYDROcodone/Acet 5/325 mg TABLET PO PRN ×3 (06:29→17:44)
[2022-02-04] MEDS: Multivit/Ca/Min/Fe/FA 1 TAB TABLET PO SCH (08:16)
[2022-02-04] MEDS: Aspirin Enteric Coated 81 MG Tablet PO SCH (08:16)
[2022-02-04] MEDS: lisinopriL 5 MG TABLET PO SCH (08:16)
[2022-02-04] MEDS: Sennosides/Docusate Sodium TABLET PO SCH ×2 (08:16→21:03)
[2022-02-04] MEDS: Ascorbic Acid 500 MG TABLET PO SCH (08:17)
[2022-02-04] MEDS: carvediloL 6.25 MG TABLET PO SCH ×2 (08:17→17:44)
[2022-02-04] MEDS: diazePAM 5 MG TABLET PO SCH (08:18)
[2022-02-04] MEDS: Mirabegron [Myrbetriq] 50 MG Tab.Er.24h PO SCH (08:18)
[2022-02-04] MEDS: Insulin LISPRO 300 UNITS/3 ML VIAL SUBQ SCH ×7 (08:22→19:34)
[2022-02-04] MEDS: Budesonide/Formoterol 160/4.5 1 PUFF INH IH SCH ×2 (09:33→21:47)
[2022-02-04] MEDS: VICTOZA 1.8 MG SUBQ SCH (17:46)
[2022-02-04] MEDS: Insulin DETEMIR 100 UNIT/ML X5UNITS SUBQ SCH (21:02)
[2022-02-04] MEDS: traZODone 50 MG TABLET PO SCH (21:03)
[2022-02-05] MEDS: *HR* HYDROcodone/Acet 5/325 mg TABLET PO PRN ×3 (05:41→17:26)
[2022-02-05] MEDS: *HR* Enoxaparin 40 MG/0.4 ML SYRINGE SQ SCH (05:41)
[2022-02-05 08:50] LABS: Basophils % 0.4 %; Eosinophils # 0.2 K/mcL (0.0-0.6); Hematocrit 39.3 % (35.3-44.9); Hemoglobin 12.4 g/dL (11.5-15.4); Immature Granulocytes % 0.8 % (0-4); Lymphocytes # 2.7 K/mcL (0.6-4.6); Lymphocytes % 35.8 %; Mean Corpuscular HGB Conc 31.6 g/dL (31.6-35.5); Monocytes # 0.5 K/mcL (0.0-1.3); Monocytes % 5.9 %; Neutrophils # 4.2 K/mcL (1.6-8.9); Platelet Count 231 K/mcL (140-400); Red Blood Count 4.27 M/mcL (3.82-4.97); Red Cell Distribution Width 16.2 % (11.5-14.5); Segmented Neutrophils % 55.1 %; White Blood Count 7.6 K/mcL (4.3-11.1)
[2022-02-05] MEDS: Budesonide/Formoterol 160/4.5 1 PUFF INH IH SCH ×2 (08:54→21:50)
[2022-02-05 09:17] LABS: Calcium 8.4 mg/dL (8.6-10.3); Potassium 4.4 mEq/L (3.5-5.1)
[2022-02-05] MEDS: carvediloL 6.25 MG TABLET PO SCH ×2 (09:55→17:25)
[2022-02-05] MEDS: Multivit/Ca/Min/Fe/FA 1 TAB TABLET PO SCH (09:55)
[2022-02-05] MEDS: Ascorbic Acid 500 MG TABLET PO SCH (09:55)
[2022-02-05] MEDS: Aspirin Enteric Coated 81 MG Tablet PO SCH (09:55)
[2022-02-05] MEDS: Sennosides/Docusate Sodium TABLET PO SCH ×2 (09:56→20:35)
[2022-02-05] MEDS: lisinopriL 5 MG TABLET PO SCH (09:56)
[2022-02-05] MEDS: diazePAM 5 MG TABLET PO SCH (09:56)
[2022-02-05] MEDS: Insulin LISPRO 300 UNITS/3 ML VIAL SUBQ SCH ×7 (09:57→20:36)
[2022-02-05] MEDS: Mirabegron [Myrbetriq] 50 MG Tab.Er.24h PO SCH (09:59)
[2022-02-05] MEDS: VICTOZA 1.8 MG SUBQ SCH (17:27)
[2022-02-05] MEDS: traZODone 50 MG TABLET PO SCH (20:34)
[2022-02-05] MEDS: Insulin DETEMIR 100 UNIT/ML X5UNITS SUBQ SCH (20:34)
[2022-02-06] MEDS: *HR* HYDROcodone/Acet 5/325 mg TABLET PO PRN ×3 (06:39→21:24)
[2022-02-06] MEDS: *HR* Enoxaparin 40 MG/0.4 ML SYRINGE SQ SCH (06:39)
[2022-02-06] MEDS: lisinopriL 5 MG TABLET PO SCH (08:26)
[2022-02-06] MEDS: Aspirin Enteric Coated 81 MG Tablet PO SCH (08:26)
[2022-02-06] MEDS: diazePAM 5 MG TABLET PO SCH (08:26)
[2022-02-06] MEDS: Sennosides/Docusate Sodium TABLET PO SCH ×2 (08:26→20:10)
[2022-02-06] MEDS: Multivit/Ca/Min/Fe/FA 1 TAB TABLET PO SCH (08:26)
[2022-02-06] MEDS: Ascorbic Acid 500 MG TABLET PO SCH (08:26)
[2022-02-06] MEDS: Insulin LISPRO 300 UNITS/3 ML VIAL SUBQ SCH ×7 (08:27→20:12)
[2022-02-06] MEDS: carvediloL 6.25 MG TABLET PO SCH ×2 (08:27→16:46)
[2022-02-06] MEDS: Mirabegron [Myrbetriq] 50 MG Tab.Er.24h PO SCH (08:28)
[2022-02-06] MEDS: Budesonide/Formoterol 160/4.5 1 PUFF INH IH SCH ×2 (10:45→22:13)
[2022-02-06] MEDS: VICTOZA 1.8 MG SUBQ SCH (16:46)
[2022-02-06] MEDS: traZODone 50 MG TABLET PO SCH (20:10)
[2022-02-06] MEDS: Insulin DETEMIR 100 UNIT/ML X5UNITS SUBQ SCH (20:11)
[2022-02-07] MEDS: *HR* Enoxaparin 40 MG/0.4 ML SYRINGE SQ SCH (05:46)
[2022-02-07] MEDS: Sennosides/Docusate Sodium TABLET PO SCH ×2 (08:02→19:41)
[2022-02-07] MEDS: Aspirin Enteric Coated 81 MG Tablet PO SCH (08:02)
[2022-02-07] MEDS: Mirabegron [Myrbetriq] 50 MG Tab.Er.24h PO SCH (08:02)
[2022-02-07] MEDS: carvediloL 6.25 MG TABLET PO SCH ×2 (08:02→17:15)
[2022-02-07] MEDS: diazePAM 5 MG TABLET PO SCH (08:02)
[2022-02-07] MEDS: Multivit/Ca/Min/Fe/FA 1 TAB TABLET PO SCH (08:02)
[2022-02-07] MEDS: Ascorbic Acid 500 MG TABLET PO SCH (08:03)
[2022-02-07] MEDS: lisinopriL 5 MG TABLET PO SCH (08:03)
[2022-02-07] MEDS: Insulin LISPRO 300 UNITS/3 ML VIAL SUBQ SCH ×7 (08:08→19:43)
[2022-02-07] MEDS: Budesonide/Formoterol 160/4.5 1 PUFF INH IH SCH ×2 (09:22→21:46)
[2022-02-07] MEDS: *HR* HYDROcodone/Acet 5/325 mg TABLET PO PRN ×2 (13:08→19:41)
[2022-02-07] MEDS: VICTOZA 1.8 MG SUBQ SCH (17:07)
[2022-02-07 18:26] VITALS: RESP 16
[2022-02-07] MEDS: traZODone 50 MG TABLET PO SCH (19:41)
[2022-02-07] MEDS: Insulin DETEMIR 100 UNIT/ML X5UNITS SUBQ SCH (19:43)
[2022-02-08] MEDS: *HR* HYDROcodone/Acet 5/325 mg TABLET PO PRN ×2 (05:50→10:12)
[2022-02-08] MEDS: *HR* Enoxaparin 40 MG/0.4 ML SYRINGE SQ SCH (05:51)
[2022-02-08 06:21] VITALS: BP 123/76; PULSE 86; TEMP 97.8; O2SAT 93
[2022-02-08] MEDS: carvediloL 6.25 MG TABLET PO SCH (08:20)
[2022-02-08] MEDS: Ascorbic Acid 500 MG TABLET PO SCH (08:21)
[2022-02-08] MEDS: Multivit/Ca/Min/Fe/FA 1 TAB TABLET PO SCH (08:21)
[2022-02-08] MEDS: lisinopriL 5 MG TABLET PO SCH (08:21)
[2022-02-08] MEDS: Aspirin Enteric Coated 81 MG Tablet PO SCH (08:21)
[2022-02-08] MEDS: Sennosides/Docusate Sodium TABLET PO SCH (08:21)
[2022-02-08] MEDS: diazePAM 5 MG TABLET PO SCH (08:21)
[2022-02-08] MEDS: Insulin LISPRO 300 UNITS/3 ML VIAL SUBQ SCH ×2 (08:22→08:23)
[2022-02-08] MEDS: Mirabegron [Myrbetriq] 50 MG Tab.Er.24h PO SCH (08:26)
[2022-02-08] MEDS: Budesonide/Formoterol 160/4.5 1 PUFF INH IH SCH (09:42)
== END 2022-02-08 12:50 | disposition home or self-care (01) | DRG 561 ==
LOC: INPPIK 16:01
PROVIDERS: ADMIT Family Medicine; ATTEND Family Medicine